=== PATIENT | female | born 1955 | race Caucasian/White ===

== ENCOUNTER 2019-10-14 10:22 | Inpatient (IN) | payer MEDICARE, OTHER ==
[2019-10-14] VITALS (15 sets, daily range): BP systolic 62–109; BP diastolic 32–62
[~2019-10-14] VITALS: Ht 198.1 cm; Wt 148.0 kg
[~2019-10-14 10:22] MED LIST: CEPH-263 PO; CITA40TA5 PO; CYAN1TAB19 PO; FERR325T72 PO; FURO40TA4 PO; Folic Acid PO; LEVO100T5 PO; LISI1TAB37 PO; LORA0.5T96 PO; NYST60PO TP; PANT40TA77 PO; TRAZ-118 PO; [UNRECOGNIZED DRUG - CODE] TOP
[2019-10-14 11:11] LABS: BASO % 0 % (0-3); EOS % 1 % (0-3); LYMPH # 0.9 x10^3/uL (1.0-4.8); LYMPH % 15 % (24-48); MEAN CORPUSCULAR HEMOGLOBIN 36 pg (25-35); MEAN CORPUSCULAR HGB CONC 34 g/dL (31-37); MEAN CORPUSCULAR VOLUME 105 fL (79-100); MONO # 0.4 x10^3/uL (0.0-1.1); MONO % 6 % (0-9); NEUT # 4.9 x10^3/uL (1.8-7.7); NEUT % 78 % (31-73); RED BLOOD COUNT 1.91 x10^6/uL (3.50-5.40); WHITE BLOOD COUNT 6.3 x10^3/uL (4.0-11.0)
[2019-10-14 11:18] LABS: HEMATOCRIT 20.1 % (36.0-47.0); HEMOGLOBIN 6.8 g/dL (12.0-15.5); PLATELET COUNT 19 x10^3/uL (140-400)
[2019-10-14 11:21] LABS: PROTHROMBIN TIME PATIENT 24.9 SEC (11.7-14.0)
[2019-10-14 11:29] LABS: CALCIUM 9.2 mg/dL (8.5-10.1); CREATININE 4.8 mg/dL (0.6-1.0); GFR 9.1; POTASSIUM 5.2 mmol/L (3.5-5.1)
[2019-10-14 11:42] LABS: ALBUMIN 2.8 g/dL (3.4-5.0); TOTAL PROTEIN 5.5 g/dL (6.4-8.2)
[2019-10-14] MEDS ORDERED: cefTRIAXone IV Push 1 GM VIAL. IVP ONE (11:45)
--- NOTE | 2019-10-14 11:51 | RAD ---
PORTABLE CHEST 1V History: Reason: hypothermia / Spl. Instructions: / History: Comparison: August 05, 2019 Findings: Diffuse interstitial thickening with mid and bibasilar alveolar opacities. Small bilateral pleural effusions, right greater than left. Unchanged heart size. No pneumothorax. Impression: 1. Interstitial and alveolar opacities, may represent pulmonary edema. 2. Small bilateral pleural effusions. Electronically signed by: Dvaid Bourgeois DO (10/14/2019 11:48 AM) [id number]
--- NOTE | 2019-10-14 12:12 | PHYS DOC ---
Past Medical History Past Medical History: A-Fib, Anemia, Anxiety, Arthritis, CHF, Constipation, Depression, Diverticulosis, GI Bleed, High Cholesterol, Hypertension, Hypothyroid, Hepatitis, Liver Disease, Renal Disease Additional Past Medical Histor: ETOH; cog communications deficit, obesity Past Surgical History: No Surgical History Smoking Status: Former Smoker Alcohol Use: Occasionally General Adult EDM: Chief Complaint: LOW TEMPERATURE HPI: HPI: Patient is a 64 year old female who was brought here from [facility] due to UTI and low temperature. Patient is morbidly obese, had liver failure due to alcohol abuse, her temperature was low today at the long term around 90 F, and she was confused. They checked her ammonia level and it was 54. They check a UA and it show evidence of infection, a Mariano catheter was placed at the long term, due to confusion and low temperature patient was transported here for evaluation. Patient is full code, she was not able to provide any history. Review of Systems: Review of Systems: Not able to obtain review of systems due to patient condition. Heart Score: Risk Factors: Risk Factors: DM, Current or recent (<one month) smoker, HTN, HLP, family history of CAD, obesity. Risk Scores: Score 0 - 3: 2.5% MACE over next 6 weeks - Discharge Home Score 4 - 6: 20.3% MACE over next 6 weeks - Admit for Clinical Observation Score 7 - 10: 72.7% MACE over next 6 weeks - Early Invasive Strategies Current Medications: Current Medications Medications (Trade) Dose Ordered Sig/Selene Start Time Stop Time Status Last Admin Dose Admin Ceftriaxone Sodium (Rocephin) 1 gm 1X ONCE 10/14/19 11:45 10/14/19 11:46 DC 10/14/19 12:07 1 GM Allergies: Allergies: Allergies Coded Allergies Type Severity Reaction Last Updated Verified hydromorphone Adverse Reaction Intermediate Doesn't like the way it makes her feel. 09/21/16 Yes Physical Exam: PE: Constitutional: Well developed, well nourished, CONFUSED AND TOXIC APPEARANCE HENT: Normocephalic, atraumatic, bilateral external ears normal, oropharynx moist, no oral exudates, nose normal. [] Eyes: PERRLA, EOMI, conjunctiva normal, no discharge. [] Neck: Normal range of motion, no tenderness, supple, no stridor. [] Cardiovascular:Heart rate regular rhythm, no murmur Lungs & Thorax: Bilateral breath sounds clear to auscultation [] Abdomen: Bowel sounds normal, soft, no tenderness, no masses, no pulsatile masses. [] Skin: COLD TO TOUCH, Back: ATRAUMATIC Extremities: BILATERAL LOWER EXTREMITIES PITTING EDEMA, 4 PLUS. Neurologic: RESPONSIVE TO VERBAL AND PAIN STIMULI BUT CONFUSED... Psychologic: NOT ABLE TO EVALUATE DUE TO CONDITION. Current Patient Data: Labs: Laboratory Tests Test 10/14/19 10:45 White Blood Count 6.3 x10^3/uL (4.0-11.0) Red Blood Count 1.91 x10^6/uL (3.50-5.40) L Hemoglobin 6.8 g/dL (12.0-15.5) *L Hematocrit 20.1 % (36.0-47.0) *L Mean Corpuscular Volume 105 fL (79-100) H Mean Corpuscular Hemoglobin 36 pg (25-35) H Mean Corpuscular Hemoglobin Concent 34 g/dL (31-37) Red Cell Distribution Width 19.0 % (11.5-14.5) H Platelet Count 19 x10^3/uL (140-400) *L Neutrophils (%) (Auto) 78 % (31-73) H Lymphocytes (%) (Auto) 15 % (24-48) L Monocytes (%) (Auto) 6 % (0-9) Eosinophils (%) (Auto) 1 % (0-3) Basophils (%) (Auto) 0 % (0-3) Neutrophils # (Auto) 4.9 x10^3/uL (1.8-7.7) Lymphocytes # (Auto) 0.9 x10^3/uL (1.0-4.8) L Monocytes # (Auto) 0.4 x10^3/uL (0.0-1.1) Eosinophils # (Auto) 0.0 x10^3/uL (0.0-0.7) Basophils # (Auto) 0.0 x10^3/uL (0.0-0.2) Prothrombin Time 24.9 SEC (11.7-14.0) H Prothrombin Time INR 2.3 (0.8-1.1) H Activated Partial Thromboplast Time 60 SEC (24-38) H Sodium Level 140 mmol/L (136-145) Potassium Level 5.2 mmol/L (3.5-5.1) H Chloride Level 107 mmol/L (98-107) Carbon Dioxide Level 21 mmol/L (21-32) Anion Gap 12 (6-14) Blood Urea Nitrogen 62 mg/dL (7-20) H Creatinine 4.8 mg/dL (0.6-1.0) H Estimated GFR (Cockcroft-Gault) 9.1 BUN/Creatinine Ratio 13 (6-20) Glucose Level 95 mg/dL (70-99) Lactic Acid Level 1.4 mmol/L (0.4-2.0) Calcium Level 9.2 mg/dL (8.5-10.1) Total Bilirubin 3.0 mg/dL (0.2-1.0) H Aspartate Amino Transferase (AST) 65 U/L (15-37) H Alanine Aminotransferase (ALT) 45 U/L (14-59) Alkaline Phosphatase 121 U/L (46-116) H Troponin I Quantitative < 0.017 ng/mL (0.000-0.055) Total Protein 5.5 g/dL (6.4-8.2) L Albumin 2.8 g/dL (3.4-5.0) L Albumin/Globulin Ratio 1.0 (1.0-1.7) Lipase 216 U/L (73-393) Laboratory Tests 10/14/19 10:45 Laboratory Tests 10/14/19 10:45 Vital Signs: Vital Signs Date Time Temp Pulse Resp B/P (MAP) Pulse Ox O2 Delivery O2 Flow Rate FiO2 10/14/19 10:22 90.1 63 16 114/51 (72) 95 Room Air 90.1 EKG: EKG: EKG was done at 1030, heart rate of 63 beats per minutes, sinus rhythm, no ST segment elevation. There is prolonged QT [] Radiology/Procedures: Radiology/Procedures: [][facility] [address] [place] [address] IMAGING REPORT Signed PATIENT: MILES SAM ACCOUNT: [id number] : 1955 LOCATION: ER AGE: 64 SEX: F EXAM STATUS: REG ER ORD. PHYSICIAN: VIRGINIA HAYDEN DO REASON: hypothermia PROCEDURE: PORTABLE CHEST 1V PORTABLE CHEST 1V History: Reason: hypothermia / Spl. Instructions: / History: Comparison: August 05, 2019 Findings: Diffuse interstitial thickening with mid and bibasilar alveolar opacities. Small bilateral pleural effusions, right greater than left. Unchanged heart size. No pneumothorax. Impression: 1. Interstitial and alveolar opacities, may represent pulmonary edema. 2. Small bilateral pleural effusions. Electronically signed by: David Bourgeois DO (10/14/2019 11:48 AM) [id number] DICTATED and SIGNED BY: DAVID BOURGEOIS DO DATE: 10/14/19 1148 Course & Med Decision Making: Course & Med Decision Making Pertinent Labs and Imaging studies reviewed. (See chart for details) Patient is a 64-year-old female who was found to be hypothermic, had UTI. Patient has an Mariano catheter that was placed this morning at the long term. Her temperature was 90 F. She was confused disoriented, she was found to be anemic, pulmonary congestion on chest x-ray, bilateral pitting edema in the lower extremity. Patient is morbidly obese. She was given 1 unit of red blood cell in ER, she was given 1 g Rocephin IV in ER for UTI. Patient has history of liver failure due to alcohol abuse. Patient will be admitted to ICU for further evaluation and treatment. Discussed with Dr. Romo, hospitalist who agreed to admit the patient Dragon Disclaimer: Cecy Disclaimer: This electronic medical record was generated, in whole or in part, using a voice recognition dictation system. Departure Departure Impression: Primary Impression: Anemia Additional Impressions: UTI (urinary tract infection) Hypothermia AMS (altered mental status) Liver failure Pulmonary edema Disposition: ADMITTED INPATIENT Admitting Physician: OZZIE (DR. ROMO) Condition: IMPROVED Referrals: KATHERINE KITCHENP-C (PCP) Justicifation of Admission Dx: Justifications for Admission: Justification of Admission Dx: Yes Altered Mental Status: Altered Mental Status VIRGINIA HAYDEN DO Oct 14, 2019 12:12
[2019-10-14] MEDS ORDERED: ONDANSETRON PF 4 MG/2 ML VIAL. IV PRN (13:00)
--- NOTE | 2019-10-14 13:59 | PDOC2 ---
GI CONSULT Reason For Consult: anemia HPI: HPI: 64 y/o female sent to ER from w/ hypothermia and UTI. Noted w/ anemia and we are asked to see for this. Unable to obtain meaningful history from her. D/w ER nurse - no reports of bleeding. We saw in 08/2019 for diarrhea and hematochezia (hemoccult negative) which resolved on admission. Was noted w/ macrocytic anemia (normal B12) requiring transfusions, thrombocytopenia, coagulopathy, and abnormal LFTs. Was still drinking. Viral hepatitis panel was negative and hemochromatosis testing was negative (for abnormal iron studies). Imaging showed fatty liver. Had UTI at that time as well. Saw cardiology and nephrology for CHF and DOT/CKD. After that, she was admitted to the [facility] in 09/2019 for many of the same issues - CHF, DOT/CKD, and anemia/thrombocytopenia w/o obvious bleeding requiring transfusions when Hgb drifted below 7. Had an EGD which showed gastritis and portal hypertension w/o bleeding. Noted w/ elevated ammonia and started on lactulose. RUQ US showed signs of cirrhosis. Fibroscan was ordered but unable to be performed due to body habitus. Discharged to w/ plans for alcohol rehab on 11/03/19. Other outside records reviewed - Hgb averages in 7-8 range. Elevated ammonia noted with note so continue lactulose and start Xifaxan (not sure if she was taking). EGD here in 2017 for hematemesis and melena showed large DU w/ visible vessel not amendable to endoscopic intervention. Underwent IR embolization. Previously reported normal colonoscopy except hemorrhoids @ [facility] 1.5 years ago - asked for records last admission but don't think we ever received. Diverticulosis noted on past imaging. S/p cholecystectomy. No pancreas history. PMH: PMH: CHF, HTN, CKD, HLD, anxiety, agoraphobia, UTI, DU, diverticulosis cholecystectomy, umbilical hernia repair x 2, complete hysterectomy FH: Family History: Other (mother - PBC) Social History: Smoke: Quit ALCOHOL: other (h/o heavy use, recently quit) Drugs: None ROS: Unobtainable. Vitals: Vitals: Vital Signs Date Time Temp Pulse Resp B/P (MAP) Pulse Ox O2 Delivery O2 Flow Rate FiO2 10/14/19 12:46 91.2 64 16 116/50 (72) 99 Nasal Cannula 2.0 91.2 Labs: Labs: Laboratory Tests Test 10/14/19 10:45 White Blood Count 6.3 x10^3/uL (4.0-11.0) Red Blood Count 1.91 x10^6/uL (3.50-5.40) Hemoglobin 6.8 g/dL (12.0-15.5) Hematocrit 20.1 % (36.0-47.0) Mean Corpuscular Volume 105 fL (79-100) Mean Corpuscular Hemoglobin 36 pg (25-35) Mean Corpuscular Hemoglobin Concent 34 g/dL (31-37) Red Cell Distribution Width 19.0 % (11.5-14.5) Platelet Count 19 x10^3/uL (140-400) Neutrophils (%) (Auto) 78 % (31-73) Lymphocytes (%) (Auto) 15 % (24-48) Monocytes (%) (Auto) 6 % (0-9) Eosinophils (%) (Auto) 1 % (0-3) Basophils (%) (Auto) 0 % (0-3) Neutrophils # (Auto) 4.9 x10^3/uL (1.8-7.7) Lymphocytes # (Auto) 0.9 x10^3/uL (1.0-4.8) Monocytes # (Auto) 0.4 x10^3/uL (0.0-1.1) Eosinophils # (Auto) 0.0 x10^3/uL (0.0-0.7) Basophils # (Auto) 0.0 x10^3/uL (0.0-0.2) Prothrombin Time 24.9 SEC (11.7-14.0) Prothromb Time International Ratio 2.3 (0.8-1.1) Activated Partial Thromboplast Time 60 SEC (24-38) Sodium Level 140 mmol/L (136-145) Potassium Level 5.2 mmol/L (3.5-5.1) Chloride Level 107 mmol/L (98-107) Carbon Dioxide Level 21 mmol/L (21-32) Anion Gap 12 (6-14) Blood Urea Nitrogen 62 mg/dL (7-20) Creatinine 4.8 mg/dL (0.6-1.0) Estimated GFR (Cockcroft-Gault) 9.1 BUN/Creatinine Ratio 13 (6-20) Glucose Level 95 mg/dL (70-99) Lactic Acid Level 1.4 mmol/L (0.4-2.0) Calcium Level 9.2 mg/dL (8.5-10.1) Total Bilirubin 3.0 mg/dL (0.2-1.0) Aspartate Amino Transf (AST/SGOT) 65 U/L (15-37) Alanine Aminotransferase (ALT/SGPT) 45 U/L (14-59) Alkaline Phosphatase 121 U/L (46-116) Troponin I Quantitative < 0.017 ng/mL (0.000-0.055) Total Protein 5.5 g/dL (6.4-8.2) Albumin 2.8 g/dL (3.4-5.0) Albumin/Globulin Ratio 1.0 (1.0-1.7) Lipase 216 U/L (73-393) Allergies: Coded Allergies: hydromorphone (Verified Adverse Reaction, Intermediate, Doesn't like the way it makes her feel., 09/21/16) Medications: Current Medications Medications (Trade) Dose Ordered Sig/Selene Route PRN Reason Start Time Stop Time Status Last Admin Dose Admin Ceftriaxone Sodium (Rocephin) 1 gm 1X ONCE IVP 10/14/19 11:45 10/14/19 11:46 DC 10/14/19 12:07 Imaging: Imaging: CXR 10/14/19 Impression: 1. Interstitial and alveolar opacities, may represent pulmonary edema. 2. Small bilateral pleural effusions. PE: GEN: ill HEENT: Atraumatic, PERRL LUNGS: CTAB HEART: RRR ABD: BS+, soft, obese - soft, non-tender EXTREMITY: BLE pitting edema SKIN: No rashes, no jaundice NEURO/PSYCH: opens eyes, does not follow commands A/P: A/P: AMS, hypothermia, UTI Chronic macrocytic anemia, thrombocytopenia (worse), coagulopathy, elevated LFTs, mild hyperammonemia Alcoholic liver disease - EGD 09/2019 @ [facility] w/ portal hypertension, past imaging w/ fatty liver/?cirrhosis H/o DU requiring IR embolization (2016) CRC screen - UTD Diverticulosis, hemorrhoids S/p cholecystectomy CHF, CKD/DOT, r/o COVID-19 -- D/w Dr. Rivera. Agree w/ transfusion. Check urine culture, fibrinogen, D-dimer. Check abd US. IV acid-farmworker field crop. BLAKE HOPKINS Oct 14, 2019 13:59
[2019-10-14] MEDS ORDERED: VITAMIN B IM (15:22)
[2019-10-14] MEDS ORDERED: ALBU2.5V5 NEB (15:22)
[2019-10-14] MEDS ORDERED: SPIR50TA PO (15:22)
[2019-10-14] MEDS ORDERED: SIMV20TA18 PO (15:22)
[2019-10-14] MEDS ORDERED: VITAMIN B PO (15:22)
[2019-10-14] MEDS ORDERED: RIFA550T4 PO (15:22)
[2019-10-14] MEDS ORDERED: PANT40TA77 PO (15:22)
[2019-10-14] MEDS ORDERED: FURO20TA3 PO (15:22)
[2019-10-14] MEDS ORDERED: CARV3.1210 PO (15:22)
[2019-10-14] MEDS ORDERED: ACET325T9 PO (15:22)
[2019-10-14] MEDS ORDERED: DICL100G54 TP (15:22)
[2019-10-14] MEDS ORDERED: LACT20SO PO (15:22)
[2019-10-14 16:10] LABS: D-DIMER 1.33 ug/mlFEU (0.00-0.50)
[2019-10-14] MEDS: PANTOPRAZOLE IV PUSH 40 MG VIAL. IVP SCH (17:52)
[2019-10-14] MEDS ORDERED: IV NORMAL SALINE 1000ML BAG 1,000 ML IV ONE (18:45)
[2019-10-14] MEDS ORDERED: IV NORMAL SALINE 500ML BAG 500 ML IV ONE (19:45)
--- NOTE | 2019-10-14 19:47 | RAD ---
INDICATION: Abdominal swelling with concern for free fluid COMPARISON: CT from August 05, 2019 FINDINGS: Focused ultrasound images obtained of the abdomen. Visualization is somewhat limited secondary to overlying soft tissue structures obscuring. Edema of the soft tissues is seen within the left side of the abdomen. IMPRESSION: * Limited evaluation secondary to overlying soft tissue structures obscuring. There is edema seen within the soft tissues. There is a relatively hypoechoic region seen at the left upper quadrant but difficult to tell if this is secondary to edema within the area or fluid. Electronically signed by: Dwayne Wilkerson MD (10/14/2019 7:44 PM) [id number]
--- NOTE | 2019-10-14 20:43 | PDOC1 ---
History and Physical Date of Admission Date of Admission DATE: 10/14/19 TIME: 20:00 Identification/Chief Complaint Chief Complaint ams, hypothermia Source Source: Chart review, Unable to obtain due to (ams) History of Present Illness History of Present Illness Ms Perez is a 64yo F w/ PMHx ETOH abuse, liver failure, HLD, HTN, Morbid obesity, OA, hypothyroidism, PUD s/p EGD in 2017 with large DU w/ visible vessel - not amendable to endoscopic intervention and underwent IR embolization) who p resented to ED on 10/14/19 with AMS and hypothermia. no meaningful hx taken given AMS. her temperature was low today at the shelter around 90 F They checked her ammonia level and it was 54. They checked a UA and it show evidence of infection, a Mariano catheter was placed at the shelter, due to confusion. LABS IN ED SHOW Hb of 6.7 but baseline 8, creatine 4.8 but baseline 2.5-3. plt count 19k, baseline around 20k patient sent directly to the ICU for further monitoring. patient is a DNR and DNI, confirmed upon admission. Past Medical History Cardiovascular: HTN, Hyperlipidemia Pulmonary: No pertinent hx CENTRAL NERVOUS SYSTEM: Periperal neuropathy, Other GI: Diverticulosis, GERD, GI bleed, Hemorrhoids, Peptic Ulcer disease, Other Heme/Onc: Anemia NOS Hepatobiliary: No pertinent hx Psych: Anxiety, Other Musculoskeletal: Osteoarthritis Rheumatologic: No pertinent hx Infectious disease: No pertinent hx Renal/: Chronic renal insuff Endocrine: Hypothyroidism Past Surgical History Past Surgical History: Cholecystectomy, Hernia Repair, Hysterectomy, Other Family History Family History: Heart Disease Social History Smoke: Quit ALCOHOL: other (h/o heavy use, recently quit) Drugs: None Current Problem List Problem List Problems Medical Problems: (1) AMS (altered mental status) Status: Acute (2) Anemia Status: Acute (3) Hypothermia Status: Acute (4) Liver failure Status: Acute (5) Pulmonary edema Status: Acute (6) UTI (urinary tract infection) Status: Acute Current Medications Current Medications Current Medications Ceftriaxone Sodium (Rocephin) 1 gm 1X ONCE IVP Last administered on 10/14/19at 12:07; Start 10/14/19 at 11:45; Stop 10/14/19 at 11:46; Status DC Ondansetron HCl (Zofran) 4 mg PRN Q8HRS PRN IV NAUSEA/VOMITING; Start 10/14/19 at 13:00; Stop 10/15/19 at 12:59 Pantoprazole Sodium (PROTONIX VIAL for IV PUSH) 40 mg DAILYAC IVP Last admi nistered on 10/14/19at 17:52; Start 10/14/19 at 16:30 Ceftriaxone Sodium (Rocephin) 1 gm Q24H IVP ; Start 10/15/19 at 12:00 Sodium Chloride 1,000 ml @ 500 mls/hr 1X ONCE IV Last administered on 10/14/19at 19:25; Start 10/14/19 at 18:45; Stop 10/14/19 at 20:44 Sodium Chloride 500 ml @ 500 mls/hr 1X ONCE IV ; Start 10/14/19 at 19:45; Stop 10/14/19 at 20:44 Active Scripts Active Levothyroxine Sodium 100 Mcg Tablet 100 Mcg PO DAILY06 90 Days Trazodone Hcl 50 Mg Tablet 50 Mg PO QHS [Folic Acid] 1 MG Tablet 1 Mg PO DAILY Nystop (Nystatin) 60 Gm Powder 1 Jony TP BID 7 Days Reported Voltaren (Diclofenac Sodium) 100 Gm Gel..gram. 2 Gm TP BID 30 Days apply to affected area(s) Tylenol (Acetaminophen) 325 Mg Tablet 1 Tab PO PRN DAILY PRN Protonix (Pantoprazole Sodium) 40 Mg Tablet.dr 40 Mg PO DAILYAC [vitamin b1 tablet] 1 Tab PO DAILY Simvastatin 20 Mg Tablet 1 Tab PO QHS Albuterol Sulfate Neb Soln (Albuterol Sulfate) 2.5 Mg/3 Ml Vial.neb 1 Vial NEB PRN Q6HRS PRN Furosemide 20 Mg Tablet 1 Tab PO DAILY Carvedilol (Carvedilol) 3.125 Mg Tablet 3.125 Mg PO BIDWMEALS Aldactone (Spironolactone) 50 Mg Tablet 1 Tab PO DAILY Lactulose 20 Gm/30 Ml Solution 20 Gm PO TID Xifaxan (Rifaximin) 550 Mg Tablet 1 Tab PO BID 10 Days [Vitamin B12 Injectio] 1,000 Mcg IM QTU 21 Days Citalopram Hbr (Citalopram Hydrobromide) 40 Mg Tablet 10 Mg PO DAILY Allergies Allergies: Coded Allergies: hydromorphone (Verified Adverse Reaction, Intermediate, Doesn't like the way it makes her feel., 6/22/17) ROS Review of System CONSTITUTIONAL: No fever or chills EYES: No recent changes SKIN: No rash or itching CARDIOVASCULAR: No chest pain, syncope, palpitations, or edema RESPIRATORY: No SOB or cough GASTROINTESTINAL: No nausea, vomiting or abdominal pain NEUROLOGICAL: No headaches or weakness ENDOCRINE: No cold or heat intolerance GENITOURINARY: No urgency or frequency of urination MUSCULOSKELETAL: No back pain or joint pain LYMPHATICS: No enlarged lymph nodes PSYCHIATRIC: No anxiety or depression Physical Exam Physical Exam GENERAL: confused HEENT: Head normocephalic, atraumatic. NECK: Supple LUNGS: Clear to auscultation. HEART: RRR, S1, S2 present, pulses intact ABDOMEN: Soft, positive bowel sounds. EXTREMITIES: No cyanosis or edema. NEUROLOGIC: Normal speech, normal tone PSYCHIATRIC: Normal affect, normal mood. SKIN: No ulceration. Vitals Vitals Vital Signs Date Time Temp Pulse Resp B/P (MAP) Pulse Ox O2 Delivery O2 Flow Rate FiO2 10/14/19 19:53 Nasal Cannula 3.0 10/14/19 18:45 97.3 70 20 69/36 97.3 10/14/19 18:00 92 Labs Labs Laboratory Tests Test 10/14/19 10:45 White Blood Count 6.3 x10^3/uL (4.0-11.0) Red Blood Count 1.91 x10^6/uL (3.50-5.40) Hemoglobin 6.8 g/dL (12.0-15.5) Hematocrit 20.1 % (36.0-47.0) Mean Corpuscular Volume 105 fL (79-100) Mean Corpuscular Hemoglobin 36 pg (25-35) Mean Corpuscular Hemoglobin Concent 34 g/dL (31-37) Red Cell Distribution Width 19.0 % (11.5-14.5) Platelet Count 19 x10^3/uL (140-400) Neutrophils (%) (Auto) 78 % (31-73) Lymphocytes (%) (Auto) 15 % (24-48) Monocytes (%) (Auto) 6 % (0-9) Eosinophils (%) (Auto) 1 % (0-3) Basophils (%) (Auto) 0 % (0-3) Neutrophils # (Auto) 4.9 x10^3/uL (1.8-7.7) Lymphocytes # (Auto) 0.9 x10^3/uL (1.0-4.8) Monocytes # (Auto) 0.4 x10^3/uL (0.0-1.1) Eosinophils # (Auto) 0.0 x10^3/uL (0.0-0.7) Basophils # (Auto) 0.0 x10^3/uL (0.0-0.2) Prothrombin Time 24.9 SEC (11.7-14.0) Prothromb Time International Ratio 2.3 (0.8-1.1) Activated Partial Thromboplast Time 60 SEC (24-38) Fibrinogen 134 mg/dL (200-440) D-Dimer (Yesenia) 1.33 ug/mlFEU (0.00-0.50) Sodium Level 140 mmol/L (136-145) Potassium Level 5.2 mmol/L (3.5-5.1) Chloride Level 107 mmol/L (98-107) Carbon Dioxide Level 21 mmol/L (21-32) Anion Gap 12 (6-14) Blood Urea Nitrogen 62 mg/dL (7-20) Creatinine 4.8 mg/dL (0.6-1.0) Estimated GFR (Cockcroft-Gault) 9.1 BUN/Creatinine Ratio 13 (6-20) Glucose Level 95 mg/dL (70-99) Lactic Acid Level 1.4 mmol/L (0.4-2.0) Calcium Level 9.2 mg/dL (8.5-10.1) Total Bilirubin 3.0 mg/dL (0.2-1.0) Aspartate Amino Transf (AST/SGOT) 65 U/L (15-37) Alanine Aminotransferase (ALT/SGPT) 45 U/L (14-59) Alkaline Phosphatase 121 U/L (46-116) Troponin I Quantitative < 0.017 ng/mL (0.000-0.055) Total Protein 5.5 g/dL (6.4-8.2) Albumin 2.8 g/dL (3.4-5.0) Albumin/Globulin Ratio 1.0 (1.0-1.7) Lipase 216 U/L (73-393) Laboratory Tests Test 10/14/19 10:45 White Blood Count 6.3 x10^3/uL (4.0-11.0) Red Blood Count 1.91 x10^6/uL (3.50-5.40) Hemoglobin 6.8 g/dL (12.0-15.5) Hematocrit 20.1 % (36.0-47.0) Mean Corpuscular Volume 105 fL (79-100) Mean Corpuscular Hemoglobin 36 pg (25-35) Mean Corpuscular Hemoglobin Concent 34 g/dL (31-37) Red Cell Distribution Width 19.0 % (11.5-14.5) Platelet Count 19 x10^3/uL (140-400) Neutrophils (%) (Auto) 78 % (31-73) Lymphocytes (%) (Auto) 15 % (24-48) Monocytes (%) (Auto) 6 % (0-9) Eosinophils (%) (Auto) 1 % (0-3) Basophils (%) (Auto) 0 % (0-3) Neutrophils # (Auto) 4.9 x10^3/uL (1.8-7.7) Lymphocytes # (Auto) 0.9 x10^3/uL (1.0-4.8) Monocytes # (Auto) 0.4 x10^3/uL (0.0-1.1) Eosinophils # (Auto) 0.0 x10^3/uL (0.0-0.7) Basophils # (Auto) 0.0 x10^3/uL (0.0-0.2) Prothrombin Time 24.9 SEC (11.7-14.0) Prothromb Time International Ratio 2.3 (0.8-1.1) Activated Partial Thromboplast Time 60 SEC (24-38) Fibrinogen 134 mg/dL (200-440) D-Dimer (Yesenia) 1.33 ug/mlFEU (0.00-0.50) Sodium Level 140 mmol/L (136-145) Potassium Level 5.2 mmol/L (3.5-5.1) Chloride Level 107 mmol/L (98-107) Carbon Dioxide Level 21 mmol/L (21-32) Anion Gap 12 (6-14) Blood Urea Nitrogen 62 mg/dL (7-20) Creatinine 4.8 mg/dL (0.6-1.0) Estimated GFR (Cockcroft-Gault) 9.1 BUN/Creatinine Ratio 13 (6-20) Glucose Level 95 mg/dL (70-99) Lactic Acid Level 1.4 mmol/L (0.4-2.0) Calcium Level 9.2 mg/dL (8.5-10.1) Total Bilirubin 3.0 mg/dL (0.2-1.0) Aspartate Amino Transf (AST/SGOT) 65 U/L (15-37) Alanine Aminotransferase (ALT/SGPT) 45 U/L (14-59) Alkaline Phosphatase 121 U/L (46-116) Troponin I Quantitative < 0.017 ng/mL (0.000-0.055) Total Protein 5.5 g/dL (6.4-8.2) Albumin 2.8 g/dL (3.4-5.0) Albumin/Globulin Ratio 1.0 (1.0-1.7) Lipase 216 U/L (73-393) VTE Prophylaxis Ordered VTE Prophylaxis Devices: Yes VTE Pharmacological Prophylaxi: Yes Assessment/Plan Assessment/Plan A/P Acute Septic Encephalopathy secondary to UTI. continue abx Hypotension likely due to volume depletion, continue IVF, check lactate level which is normal. albumin 2.8. will given IV albumin. Hypothermia Chronic Anemia, thyrombocytopenia Anemia: suspect due to Etoh SPEP and HFE gene testing neg coagulapathy with elevated INR secondary to etoh abuse Elevated Amonia Alcoholic liver disease - EGD 09/2019 @ [facility] w/ portal hypertension, past imaging w/ fatty liver/?cirrhosis. check abdominal US Acute on Chronic Renal Failure secondary to vasomotor nephropapthy seen by Nephro last admission, admission creatine 4.8, baseline 2.5-3 H/o DU requiring IR embolization (2016) - IV PPI therapy Debility, weakness consult PT and OT EtOH abuse disorder, very morbid obesity, BMI 55 Severe protein calorie malnutrition Hx of CHF but preserved Ef last echo 08/07/19 dvt ppx: defered given low plt and elevated INR GI and nephro consult DNR and DNI Justicifation of Admission Dx: Justifications for Admission: Justification of Admission Dx: Yes Altered Mental Status: Altered Mental Status TJ JAIMES MD Oct 14, 2019 20:43
[2019-10-14] MEDS: ALBUMIN HUMAN 25% 100 ML IV SCH (21:07)
[2019-10-14] MEDS: NOREPINEPHRINE VIAL 8 MG in IV DEXTROSE 5% 250 ML IV PRN (22:08)
[2019-10-15] VITALS (26 sets, daily range): BP systolic 77–150; BP diastolic 35–65
[2019-10-15] MEDS: IV NORMAL SALINE 1000ML BAG 1,000 ML IV SCH ×2 (01:00→18:06)
--- NOTE | 2019-10-15 02:24 | NUR ---
Nursing Note: Pt with about 10cc of urine this whole shift. Notified Dr. Francis about this earlier in the shift. Started fluids/albumin and levophed to help with BP. Urine that is produced in bloody, catheter flushed. Bladder scanned patient as well with 0cc as result.
[2019-10-15 05:47] LABS: HEMATOCRIT 22.3 % (36.0-47.0); HEMOGLOBIN 7.6 g/dL (12.0-15.5); RED BLOOD COUNT 2.16 x10^6/uL (3.50-5.40)
[2019-10-15 06:10] LABS: ALBUMIN 2.9 g/dL (3.4-5.0); ALBUMIN/GLOBULIN RATIO 1.2 (1.0-1.7); CALCIUM 8.6 mg/dL (8.5-10.1); CREATININE 5.2 mg/dL (0.6-1.0); GFR 8.3; TOTAL BILIRUBIN 4.5 mg/dL (0.2-1.0); TOTAL PROTEIN 5.3 g/dL (6.4-8.2)
[2019-10-15 06:14] LABS: POTASSIUM 5.8 mmol/L (3.5-5.1)
[2019-10-15 07:19] LABS: PROTHROMBIN TIME PATIENT 23.6 SEC (11.7-14.0)
[2019-10-15 09:20] LABS: WHITE BLOOD COUNT 10.1 x10^3/uL (4.0-11.0)
[2019-10-15] MEDS: PANTOPRAZOLE IV PUSH 40 MG VIAL. IVP SCH (09:31)
[2019-10-15] MEDS: ALBUMIN HUMAN 25% 100 ML IV SCH ×2 (09:31→21:21)
[2019-10-15] MEDS: NOREPINEPHRINE VIAL 8 MG in IV DEXTROSE 5% 250 ML IV PRN ×2 (09:33→21:21)
--- NOTE | 2019-10-15 10:14 | EKG ---
[address] [place] [address] Test Date: 2019-10-14 Test Time: 10:30:01 Pat Name: MILES SAM Department: Room: Gender: F Cro: : 1955 Requested By: VIRGINIA HAYDEN Order Number: [id number] Reading MD: Measurements Intervals [place] Rate: 63 P: 90 WA: 198 QRS: 54 QRSD: 100 T: -42 QT: 480 QTc: 495 Interpretive Statements SINUS RHYTHM LOW LIMB LEAD VOLTAGE PROLONGED QT NO SPECIFIC ECG ABNORMALITIES RI6.01 No previous ECG available for comparison
--- NOTE | 2019-10-15 11:15 | PDOC ---
G I PROGRESS NOTE Subjective Per staff, not responsive, though moans and makes some purposeful movements with head. Physical Exam No real purposeful response. PE postponed due to PUI and to conserve PPE. Review of Relevant I have reviewed the following items catarina (where applicable) has been applied. Labs Laboratory Tests Test 10/14/19 10:45 10/15/19 05:30 White Blood Count 6.3 x10^3/uL (4.0-11.0) 10.1 x10^3/uL (4.0-11.0) Red Blood Count 1.91 x10^6/uL (3.50-5.40) 2.16 x10^6/uL (3.50-5.40) Hemoglobin 6.8 g/dL (12.0-15.5) 7.6 g/dL (12.0-15.5) Hematocrit 20.1 % (36.0-47.0) 22.3 % (36.0-47.0) Mean Corpuscular Volume 105 fL (79-100) 103 fL (79-100) Mean Corpuscular Hemoglobin 36 pg (25-35) 35 pg (25-35) Mean Corpuscular Hemoglobin Concent 34 g/dL (31-37) 34 g/dL (31-37) Red Cell Distribution Width 19.0 % (11.5-14.5) 20.0 % (11.5-14.5) Platelet Count 19 x10^3/uL (140-400) 25 x10^3/uL (140-400) Neutrophils (%) (Auto) 78 % (31-73) Lymphocytes (%) (Auto) 15 % (24-48) Monocytes (%) (Auto) 6 % (0-9) Eosinophils (%) (Auto) 1 % (0-3) Basophils (%) (Auto) 0 % (0-3) Neutrophils # (Auto) 4.9 x10^3/uL (1.8-7.7) Lymphocytes # (Auto) 0.9 x10^3/uL (1.0-4.8) Monocytes # (Auto) 0.4 x10^3/uL (0.0-1.1) Eosinophils # (Auto) 0.0 x10^3/uL (0.0-0.7) Basophils # (Auto) 0.0 x10^3/uL (0.0-0.2) Prothrombin Time 24.9 SEC (11.7-14.0) 23.6 SEC (11.7-14.0) Prothromb Time International Ratio 2.3 (0.8-1.1) 2.1 (0.8-1.1) Activated Partial Thromboplast Time 60 SEC (24-38) Fibrinogen 134 mg/dL (200-440) D-Dimer (Yesenia) 1.33 ug/mlFEU (0.00-0.50) Sodium Level 140 mmol/L (136-145) 141 mmol/L (136-145) Potassium Level 5.2 mmol/L (3.5-5.1) 5.8 mmol/L (3.5-5.1) Chloride Level 107 mmol/L (98-107) 108 mmol/L (98-107) Carbon Dioxide Level 21 mmol/L (21-32) 23 mmol/L (21-32) Anion Gap 12 (6-14) 10 (6-14) Blood Urea Nitrogen 62 mg/dL (7-20) 64 mg/dL (7-20) Creatinine 4.8 mg/dL (0.6-1.0) 5.2 mg/dL (0.6-1.0) Estimated GFR (Cockcroft-Gault) 9.1 8.3 BUN/Creatinine Ratio 13 (6-20) 12 (6-20) Glucose Level 95 mg/dL (70-99) 91 mg/dL (70-99) Lactic Acid Level 1.4 mmol/L (0.4-2.0) Calcium Level 9.2 mg/dL (8.5-10.1) 8.6 mg/dL (8.5-10.1) Total Bilirubin 3.0 mg/dL (0.2-1.0) 4.5 mg/dL (0.2-1.0) Aspartate Amino Transf (AST/SGOT) 65 U/L (15-37) 57 U/L (15-37) Alanine Aminotransferase (ALT/SGPT) 45 U/L (14-59) 50 U/L (14-59) Alkaline Phosphatase 121 U/L (46-116) 120 U/L (46-116) Troponin I Quantitative < 0.017 ng/mL (0.000-0.055) Total Protein 5.5 g/dL (6.4-8.2) 5.3 g/dL (6.4-8.2) Albumin 2.8 g/dL (3.4-5.0) 2.9 g/dL (3.4-5.0) Albumin/Globulin Ratio 1.0 (1.0-1.7) 1.2 (1.0-1.7) Lipase 216 U/L (73-393) Laboratory Tests Test 10/15/19 05:30 White Blood Count 10.1 x10^3/uL (4.0-11.0) Red Blood Count 2.16 x10^6/uL (3.50-5.40) Hemoglobin 7.6 g/dL (12.0-15.5) Hematocrit 22.3 % (36.0-47.0) Mean Corpuscular Volume 103 fL (79-100) Mean Corpuscular Hemoglobin 35 pg (25-35) Mean Corpuscular Hemoglobin Concent 34 g/dL (31-37) Red Cell Distribution Width 20.0 % (11.5-14.5) Platelet Count 25 x10^3/uL (140-400) Prothrombin Time 23.6 SEC (11.7-14.0) Prothromb Time International Ratio 2.1 (0.8-1.1) Sodium Level 141 mmol/L (136-145) Potassium Level 5.8 mmol/L (3.5-5.1) Chloride Level 108 mmol/L (98-107) Carbon Dioxide Level 23 mmol/L (21-32) Anion Gap 10 (6-14) Blood Urea Nitrogen 64 mg/dL (7-20) Creatinine 5.2 mg/dL (0.6-1.0) Estimated GFR (Cockcroft-Gault) 8.3 BUN/Creatinine Ratio 12 (6-20) Glucose Level 91 mg/dL (70-99) Calcium Level 8.6 mg/dL (8.5-10.1) Total Bilirubin 4.5 mg/dL (0.2-1.0) Aspartate Amino Transf (AST/SGOT) 57 U/L (15-37) Alanine Aminotransferase (ALT/SGPT) 50 U/L (14-59) Alkaline Phosphatase 120 U/L (46-116) Total Protein 5.3 g/dL (6.4-8.2) Albumin 2.9 g/dL (3.4-5.0) Albumin/Globulin Ratio 1.2 (1.0-1.7) Microbiology 10/14/19 Blood Culture - Preliminary, Resulted NO GROWTH AFTER 1 DAY Platelets better. Maybe low-grade DIC. Vitals/I & O Vital Sign - Last 24 Hours 10/14/19 10/14/19 10/14/19 10/14/19 11:16 11:46 12:12 12:13 Pulse 60 58 Resp 16 20 16 B/P (MAP) 103/49 (67) 91/59 (70) Pulse Ox 95 93 90 94 O2 Delivery Room Air Room Air Nasal Cannula O2 Flow Rate 2.0 10/14/19 10/14/19 10/14/19 10/14/19 12:16 12:46 13:16 13:46 Temp 91.2 91.2 Pulse 62 64 56 64 Resp 16 16 16 16 B/P (MAP) 100/51 (67) 116/50 (72) 95/48 (64) 102/54 (70) Pulse Ox 100 99 98 97 O2 Delivery Nasal Cannula Nasal Cannula Nasal Cannula O2 Flow Rate 2.0 2.0 2.0 10/14/19 10/14/19 10/14/19 10/14/19 14:00 14:00 15:00 15:40 Temp 92.0 93.2 92.0 93.2 Pulse 61 62 87 Resp 18 18 24 B/P (MAP) 102/53 (69) 84/44 (57) 81/62 Pulse Ox 96 95 O2 Delivery Nasal Cannula Nasal Cannula Nasal Cannula O2 Flow Rate 2.0 2.0 2.0 10/14/19 10/14/19 10/14/19 10/14/19 15:50 16:00 16:00 17:00 Temp 93.2 94.1 93.2 94.1 Pulse 83 64 70 Resp 24 18 18 B/P (MAP) 104/40 83/57 (66) 98/55 Pulse Ox 94 O2 Delivery Nasal Cannula Nasal Cannula O2 Flow Rate 2.0 2.0 10/14/19 10/14/19 10/14/19 10/14/19 17:00 18:00 18:00 18:45 Temp 94.1 95.3 97.3 94.1 95.3 97.3 Pulse 72 70 70 70 Resp 16 18 19 20 B/P (MAP) 98/55 (69) 84/47 (59) 85/47 69/36 Pulse Ox 96 92 O2 Delivery Nasal Cannula Nasal Cannula O2 Flow Rate 2.0 2.0 10/14/19 10/14/19 10/14/19 10/14/19 19:00 19:30 19:53 20:00 Temp 98.3 98.3 Pulse 90 72 72 Resp 18 18 18 B/P (MAP) 74/50 (58) 71/36 (48) 62/32 (42) Pulse Ox 90 92 93 O2 Delivery Nasal Cannula Nasal Cannula Nasal Cannula Nasal Cannula O2 Flow Rate 2.0 3.0 3.0 3.0 10/14/19 10/14/19 10/14/19 10/14/19 20:30 21:00 22:00 23:00 Pulse 72 78 76 84 Resp 18 18 18 18 B/P (MAP) 74/36 (49) 85/37 (53) 91/42 (58) 109/40 (63) Pulse Ox 92 92 92 92 O2 Delivery Nasal Cannula Nasal Cannula Nasal Cannula Nasal Cannula O2 Flow Rate 3.0 3.0 3.0 3.0 10/14/19 10/15/19 10/15/19 10/15/19 23:49 00:00 01:00 02:00 Temp 97.8 97.8 Pulse 82 82 82 Resp 18 18 18 B/P (MAP) 83/47 (59) 80/46 (57) 86/43 (57) Pulse Ox 96 96 98 O2 Delivery Nasal Cannula Nasal Cannula Nasal Cannula Nasal Cannula O2 Flow Rate 3.0 3.0 3.0 3.0 10/15/19 10/15/19 10/15/19 10/15/19 03:00 04:00 04:10 05:00 Temp 97.9 97.9 Pulse 79 79 79 Resp 14 14 14 B/P (MAP) 93/46 (62) 96/37 (56) 101/35 (57) Pulse Ox 97 98 96 O2 Delivery Nasal Cannula Nasal Cannula Nasal Cannula Nasal Cannula O2 Flow Rate 3.0 3.0 3.0 3.0 10/15/19 10/15/19 10/15/19 10/15/19 06:00 07:00 08:00 08:00 Temp 97.7 97.7 Pulse 80 80 74 Resp 14 16 18 B/P (MAP) 100/41 (60) 96/43 (60) 84/40 (55) Pulse Ox 98 99 98 O2 Delivery Nasal Cannula Nasal Cannula Nasal Cannula Nasal Cannula O2 Flow Rate 3.0 3.0 3.0 3.0 10/15/19 10/15/19 10/15/19 10/15/19 09:00 09:15 09:45 10:00 Pulse 66 74 80 77 Resp 18 16 B/P (MAP) 84/41 (55) 77/41 (53) 91/51 (64) 126/52 (76) Pulse Ox 97 96 O2 Delivery Nasal Cannula Nasal Cannula O2 Flow Rate 3.0 3.0 10/15/19 11:00 Pulse 79 Resp 20 B/P (MAP) 107/43 (64) Pulse Ox 98 O2 Delivery Nasal Cannula O2 Flow Rate 3.0 Intake and Output 10/14/19 10/14/19 10/15/19 15:00 23:00 07:00 Intake Total 2000 ml 620 ml Output Total 10 ml 5 ml Balance 1990 ml 615 ml Images Couldn't visualize peritoneum well on sono due to body habitus; doesn't seem like a lot of ascites. Problem List Problems Medical Problems: (1) AMS (altered mental status) Status: Acute (2) Anemia Status: Acute (3) Hypothermia Status: Acute (4) Liver failure Status: Acute (5) Pulmonary edema Status: Acute (6) UTI (urinary tract infection) Status: Acute Assessment AMS, from UTI? UTI? Seems likely; cultures pending. CLD, maybe cirrhotic. Plan of Care: Continue current Tx, Mgmt Plan of Care Note Note to have HD catheter placed. Justicifation of Admission Dx: Justifications for Admission: Justification of Admission Dx: Yes Altered Mental Status: Altered Mental Status HEIDI GREENE MD Oct 15, 2019 11:15
--- NOTE | 2019-10-15 11:26 | PDOC2 ---
CONSULT Date of Consult Date of Consult DATE: 10/15/19 TIME: 11:12 Reason for Consult Reason for Consult: DOT Source Source: Chart review History of Present Illness Reason for Visit: Hx Obtained from chart review 05/04 AMS Pt is a 64yo F w/ PMHx ETOH abuse, liver failure, HTN, Morbid obesity PUD s/p EGD in 2017 with large DU w/ visible vessel - not amendable to endoscopic intervention and underwent IR embolization) who presented to ED on 10/14/19 with AMS and hypothermia. [facility] around 90 F , ammonia level was 54. UA at [facility] c/w UTI . Mariano catheter was placed at the prison 05/04 to confusion and Pt sent to [facility] from [facility] In ED Hb of 6.7 <-- 8, Cr 4.8 plt count 19k, Patient is a DNR and DNI, , family would like to go ahead with Dialysis if indicated and is Temporary .Pt was hypotensive since presentation. No response to IVF Last night BP in 60's started on Pressors. She has been Anuric . Currently On o2 by [place] Past Medical History Cardiovascular: HTN, Hyperlipidemia Pulmonary: No pertinent hx CENTRAL NERVOUS SYSTEM: Periperal neuropathy, Other GI: Diverticulosis, GERD, GI bleed, Hemorrhoids, Peptic Ulcer disease, Other Heme/Onc: Anemia NOS Hepatobiliary: No pertinent hx Psych: Anxiety, Other Musculoskeletal: Osteoarthritis Rheumatologic: No pertinent hx Infectious disease: No pertinent hx Renal/: Chronic renal insuff Endocrine: Hypothyroidism Past Surgical History Past Surgical History: Cholecystectomy, Hernia Repair, Hysterectomy, Other Family History Family History: Heart Disease Social History Quit ALCOHOL: other (h/o heavy use, recently quit) Drugs: None Lives: with Family Current Problem List Problem List Problems Medical Problems: (1) AMS (altered mental status) Status: Acute (2) Anemia Status: Acute (3) Hypothermia Status: Acute (4) Liver failure Status: Acute (5) Pulmonary edema Status: Acute (6) UTI (urinary tract infection) Status: Acute Current Medications Current Medications Current Medications Ceftriaxone Sodium (Rocephin) 1 gm 1X ONCE IVP Last administered on 10/14/19at 12:07; Start 10/14/19 at 11:45; Stop 10/14/19 at 11:46; Status DC Ondansetron HCl (Zofran) 4 mg PRN Q8HRS PRN IV NAUSEA/VOMITING; Start 10/14/19 at 13:00; Stop 10/15/19 at 12:59 Pantoprazole Sodium (PROTONIX VIAL for IV PUSH) 40 mg DAILYAC IVP Last administered on 10/15/19at 09:31; Start 10/14/19 at 16:30 Ceftriaxone Sodium (Rocephin) 1 gm Q24H IVP ; Start 10/15/19 at 12:00 Sodium Chloride 1,000 ml @ 500 mls/hr 1X ONCE IV Last administered on 10/14/19at 19:25; Start 10/14/19 at 18:45; Stop 10/14/19 at 20:44; Status DC Sodium Chloride 500 ml @ 500 mls/hr 1X ONCE IV Last administered on 10/14/19at 19:45; Start 10/14/19 at 19:45; Stop 10/14/19 at 20:44; Status DC Albumin Human 100 ml @ 100 mls/hr BID IV Last administered on 10/15/19at 09:31; Start 10/14/19 at 21:00 Norepinephrine Bitartrate 8 mg/ Dextrose 258 ml @ 28.27 mls/ hr CONT PRN IV PER PROTOCOL Last administered on 10/15/19at 09:33; Start 10/14/19 at 21:45 Nystatin (Nystop) 1 jony BID TP ; Start 10/15/19 at 09:00 Sodium Chloride 1,000 ml @ 75 mls/hr [id number] IV Last administered on 10/15/19at 01:00; Start 10/15/19 at 01:00 Active Scripts Active Levothyroxine Sodium 100 Mcg Tablet 100 Mcg PO DAILY06 90 Days Trazodone Hcl 50 Mg Tablet 50 Mg PO QHS [Folic Acid] 1 MG Tablet 1 Mg PO DAILY Nystop (Nystatin) 60 Gm Powder 1 Jony TP BID 7 Days Reported Voltaren (Diclofenac Sodium) 100 Gm Gel..gram. 2 Gm TP BID 30 Days apply to affected area(s) Tylenol (Acetaminophen) 325 Mg Tablet 1 Tab PO PRN DAILY PRN Protonix (Pantoprazole Sodium) 40 Mg Tablet.dr 40 Mg PO DAILYAC [vitamin b1 tablet] 1 Tab PO DAILY Simvastatin 20 Mg Tablet 1 Tab PO QHS Albuterol Sulfate Neb Soln (Albuterol Sulfate) 2.5 Mg/3 Ml Vial.neb 1 Vial NEB PRN Q6HRS PRN Furosemide 20 Mg Tablet 1 Tab PO DAILY Carvedilol (Carvedilol) 3.125 Mg Tablet 3.125 Mg PO BIDWMEALS Aldactone (Spironolactone) 50 Mg Tablet 1 Tab PO DAILY Lactulose 20 Gm/30 Ml Solution 20 Gm PO TID Xifaxan (Rifaximin) 550 Mg Tablet 1 Tab PO BID 10 Days [Vitamin B12 Injectio] 1,000 Mcg IM QTU 21 Days Citalopram Hbr (Citalopram Hydrobromide) 40 Mg Tablet 10 Mg PO DAILY Allergies Allergies: Coded Allergies: hydromorphone (Verified Adverse Reaction, Intermediate, Doesn't like the way it makes her feel., 09/21/16) ROS Review of System Unable to obtain 2/2 AMS Physical Exam Physical Exam GENERAL: NAD, AMS HEENT: Head normocephalic, atraumatic, o2 by NC . NECK: Supple LUNGS: Decreased at bases HEART: RRR, S1, S2 present, ABDOMEN: Soft, NT EXTREMITIES: No cyanosis or edema. NEUROLOGIC: Confused, AMS PSYCHIATRIC: confused SKIN: No rash Mariano + Vital Signs Vital Signs Date Time Temp Pulse Resp B/P (MAP) Pulse Ox O2 Delivery O2 Flow Rate FiO2 10/15/19 11:00 79 20 107/43 (64) 98 Nasal Cannula 3.0 10/15/19 08:00 97.7 97.7 Assessment & Plan DOT - ATN sec to Severe Hypotension/ UTI Anuric , worsening renal function and elevated K Dialysis today , will need temp HDC ,Treatment plan mirian Mir CKD- was hospitalized earlier this year with DOT with recent baseline of 2.4- 2.5 at [facility] Baseline in 2017 1.5-1.7 HyperKalemia- HD today Anemia- Chronic , Hgb 6.8 at presentation Acute Encephalopathy secondary to UTI/Sepsis Abnormal CxR- Interstitial and alveolar opacities, may represent pulmonary edema. Small bilateral pleural effusions. 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 neg Coagulapathy with elevated INR secondary to etoh abuse Elevated Ammonia Alcoholic liver disease - EGD 09/2019 @ [place] w/ portal hypertension, past imaging w/ fatty liver/?cirrhosis H/o DU requiring IR embolization (2017) - IV PPI therapy EtOH abuse disorder, Severe Morbid obesity, BMI 55 Hx of CHF but preserved Ef last echo 08/07/19 CoVid pending DNR and DNI Dw RN Labs Labs Laboratory Tests Test 10/14/19 10:45 10/15/19 05:30 White Blood Count 6.3 x10^3/uL (4.0-11.0) 10.1 x10^3/uL (4.0-11.0) Red Blood Count 1.91 x10^6/uL (3.50-5.40) 2.16 x10^6/uL (3.50-5.40) Hemoglobin 6.8 g/dL (12.0-15.5) 7.6 g/dL (12.0-15.5) Hematocrit 20.1 % (36.0-47.0) 22.3 % (36.0-47.0) Mean Corpuscular Volume 105 fL (79-100) 103 fL (79-100) Mean Corpuscular Hemoglobin 36 pg (25-35) 35 pg (25-35) Mean Corpuscular Hemoglobin Concent 34 g/dL (31-37) 34 g/dL (31-37) Red Cell Distribution Width 19.0 % (11.5-14.5) 20.0 % (11.5-14.5) Platelet Count 19 x10^3/uL (140-400) 25 x10^3/uL (140-400) Neutrophils (%) (Auto) 78 % (31-73) Lymphocytes (%) (Auto) 15 % (24-48) Monocytes (%) (Auto) 6 % (0-9) Eosinophils (%) (Auto) 1 % (0-3) Basophils (%) (Auto) 0 % (0-3) Neutrophils # (Auto) 4.9 x10^3/uL (1.8-7.7) Lymphocytes # (Auto) 0.9 x10^3/uL (1.0-4.8) Monocytes # (Auto) 0.4 x10^3/uL (0.0-1.1) Eosinophils # (Auto) 0.0 x10^3/uL (0.0-0.7) Basophils # (Auto) 0.0 x10^3/uL (0.0-0.2) Prothrombin Time 24.9 SEC (11.7-14.0) 23.6 SEC (11.7-14.0) Prothromb Time International Ratio 2.3 (0.8-1.1) 2.1 (0.8-1.1) Activated Partial Thromboplast Time 60 SEC (24-38) Fibrinogen 134 mg/dL (200-440) D-Dimer (Yesenia) 1.33 ug/mlFEU (0.00-0.50) Sodium Level 140 mmol/L (136-145) 141 mmol/L (136-145) Potassium Level 5.2 mmol/L (3.5-5.1) 5.8 mmol/L (3.5-5.1) Chloride Level 107 mmol/L (98-107) 108 mmol/L (98-107) Carbon Dioxide Level 21 mmol/L (21-32) 23 mmol/L (21-32) Anion Gap 12 (6-14) 10 (6-14) Blood Urea Nitrogen 62 mg/dL (7-20) 64 mg/dL (7-20) Creatinine 4.8 mg/dL (0.6-1.0) 5.2 mg/dL (0.6-1.0) Estimated GFR (Cockcroft-Gault) 9.1 8.3 BUN/Creatinine Ratio 13 (6-20) 12 (6-20) Glucose Level 95 mg/dL (70-99) 91 mg/dL (70-99) Lactic Acid Level 1.4 mmol/L (0.4-2.0) Calcium Level 9.2 mg/dL (8.5-10.1) 8.6 mg/dL (8.5-10.1) Total Bilirubin 3.0 mg/dL (0.2-1.0) 4.5 mg/dL (0.2-1.0) Aspartate Amino Transf (AST/SGOT) 65 U/L (15-37) 57 U/L (15-37) Alanine Aminotransferase (ALT/SGPT) 45 U/L (14-59) 50 U/L (14-59) Alkaline Phosphatase 121 U/L (46-116) 120 U/L (46-116) Troponin I Quantitative < 0.017 ng/mL (0.000-0.055) Total Protein 5.5 g/dL (6.4-8.2) 5.3 g/dL (6.4-8.2) Albumin 2.8 g/dL (3.4-5.0) 2.9 g/dL (3.4-5.0) Albumin/Globulin Ratio 1.0 (1.0-1.7) 1.2 (1.0-1.7) Lipase 216 U/L (73-393) Laboratory Tests Test 10/15/19 05:30 White Blood Count 10.1 x10^3/uL (4.0-11.0) Red Blood Count 2.16 x10^6/uL (3.50-5.40) Hemoglobin 7.6 g/dL (12.0-15.5) Hematocrit 22.3 % (36.0-47.0) Mean Corpuscular Volume 103 fL (79-100) Mean Corpuscular Hemoglobin 35 pg (25-35) Mean Corpuscular Hemoglobin Concent 34 g/dL (31-37) Red Cell Distribution Width 20.0 % (11.5-14.5) Platelet Count 25 x10^3/uL (140-400) Prothrombin Time 23.6 SEC (11.7-14.0) Prothromb Time International Ratio 2.1 (0.8-1.1) Sodium Level 141 mmol/L (136-145) Potassium Level 5.8 mmol/L (3.5-5.1) Chloride Level 108 mmol/L (98-107) Carbon Dioxide Level 23 mmol/L (21-32) Anion Gap 10 (6-14) Blood Urea Nitrogen 64 mg/dL (7-20) Creatinine 5.2 mg/dL (0.6-1.0) Estimated GFR (Cockcroft-Gault) 8.3 BUN/Creatinine Ratio 12 (6-20) Glucose Level 91 mg/dL (70-99) Calcium Level 8.6 mg/dL (8.5-10.1) Total Bilirubin 4.5 mg/dL (0.2-1.0) Aspartate Amino Transf (AST/SGOT) 57 U/L (15-37) Alanine Aminotransferase (ALT/SGPT) 50 U/L (14-59) Alkaline Phosphatase 120 U/L (46-116) Total Protein 5.3 g/dL (6.4-8.2) Albumin 2.9 g/dL (3.4-5.0) Albumin/Globulin Ratio 1.2 (1.0-1.7) Review All relevant outside records, renal labs, imaging studies, telemetry/EKG's were reviewed. Images Images 1. Interstitial and alveolar opacities, may represent pulmonary edema. 2. Small bilateral pleural effusions. MELISSA MARTINEZ MD Oct 15, 2019 11:26
[2019-10-15] MEDS: cefTRIAXone IV Push 1 GM VIAL. IVP SCH (11:55)
[2019-10-15] MEDS: NYSTATIN TOPICAL POWDER 15GM BOTTLE. TP SCH ×2 (12:09→21:21)
[2019-10-15] MEDS ORDERED: LIDOCAINE WITH 8.4% SOD BICARB 3 ML DISP.SYRIN. INJ ONE (14:45)
--- NOTE | 2019-10-15 14:58 | NUR ---
SS following for discharge planning. SS reviewed pt chart and discussed with pt RN. Pt is from [facility], ; fax [phone]. Pt on IV Rocephin and starting dialysis. Pt getting trialysis cath today. COVID19 test pending. Pt's family not wanting skilled nursing dialysis. SS will continue to follow for discharge planning.
--- NOTE | 2019-10-15 15:46 | RAD ---
PORTABLE CHEST 1V History: Reason: Central line placement, possibility COVID / Spl. Instructions: / History: Comparison: October 14, 2019 Findings: Interval placement right IJ central line with tip projecting over the right atrium. Diffuse interstitial and alveolar opacities, increased on the right. Small bilateral layering pleural effusions, unchanged. Enlarged heart size, unchanged. Impression: 1. Interval placement right IJ central line. No pneumothorax. 2. Diffuse bilateral interstitial and alveolar opacities, increased on the right. 3. Small bilateral layering pleural effusions, unchanged. Electronically signed by: David Bourgeois DO (10/15/2019 3:43 PM) [id number]
[2019-10-15] MEDS ORDERED: IV NORMAL SALINE 1000ML BAG 1,000 ML IV PRN ×2 (16:06)
[2019-10-15] MEDS ORDERED: ALBUMIN HUMAN 25% 200 ML IV PRN (16:15)
[2019-10-15] MEDS ORDERED: 0.9 % SODIUM CHLORIDE 10 ML DISP.SYRIN. IV PRN ×2 (16:15)
[2019-10-15] MEDS ORDERED: DIALYSIS PATIENT. MC PRN ×2 (16:15)
[2019-10-15] MEDS ORDERED: diphenhydrAMINE 50 MG/ML VIAL IV PRN ×2 (16:15)
--- NOTE | 2019-10-15 17:21 | PDOC ---
PROGRESS NOTES Chief Complaint Chief Complaint A/P Acute Septic Encephalopathy secondary to UTI. continue abx Hypotension likely due to volume depletion, continue IVF, check lactate level which is normal. pressor support as needed. 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 check abdominal US Acute on Chronic Renal Failure secondary to vasomotor nephropapthy seen by Nephro last admission, admission creatine 4.8, baseline 2.5-3. creatine worse. nephro consult and to start HD temporarily H/o DU requiring IR embolization (2016) - IV PPI therapy Debility, weakness consult PT and OT EtOH abuse disorder, very morbid obesity, BMI 55 Severe protein calorie malnutrition Hx of CHF but preserved Ef last echo 08/07/19 dvt ppx: defered given low plt and elevated INR GI and nephro consult DNR and DNI Vitals Vitals Vital Signs Date Time Temp Pulse Resp B/P (MAP) Pulse Ox O2 Delivery O2 Flow Rate FiO2 10/15/19 17:00 70 18 127/63 (84) 98 Nasal Cannula 3.0 10/15/19 16:00 97.8 97.8 Physical Exam Lungs: Clear Labs LABS Laboratory Tests Test 10/15/19 05:30 White Blood Count 10.1 x10^3/uL (4.0-11.0) Red Blood Count 2.16 x10^6/uL (3.50-5.40) Hemoglobin 7.6 g/dL (12.0-15.5) Hematocrit 22.3 % (36.0-47.0) Mean Corpuscular Volume 103 fL (79-100) Mean Corpuscular Hemoglobin 35 pg (25-35) Mean Corpuscular Hemoglobin Concent 34 g/dL (31-37) Red Cell Distribution Width 20.0 % (11.5-14.5) Platelet Count 25 x10^3/uL (140-400) Prothrombin Time 23.6 SEC (11.7-14.0) Prothromb Time International Ratio 2.1 (0.8-1.1) Sodium Level 141 mmol/L (136-145) Potassium Level 5.8 mmol/L (3.5-5.1) Chloride Level 108 mmol/L (98-107) Carbon Dioxide Level 23 mmol/L (21-32) Anion Gap 10 (6-14) Blood Urea Nitrogen 64 mg/dL (7-20) Creatinine 5.2 mg/dL (0.6-1.0) Estimated GFR (Cockcroft-Gault) 8.3 BUN/Creatinine Ratio 12 (6-20) Glucose Level 91 mg/dL (70-99) Calcium Level 8.6 mg/dL (8.5-10.1) Total Bilirubin 4.5 mg/dL (0.2-1.0) Aspartate Amino Transf (AST/SGOT) 57 U/L (15-37) Alanine Aminotransferase (ALT/SGPT) 50 U/L (14-59) Alkaline Phosphatase 120 U/L (46-116) Total Protein 5.3 g/dL (6.4-8.2) Albumin 2.9 g/dL (3.4-5.0) Albumin/Globulin Ratio 1.2 (1.0-1.7) Assessment and Plan Assessmemt and Plan Problems Medical Problems: (1) AMS (altered mental status) Status: Acute (2) Anemia Status: Acute (3) Hypothermia Status: Acute (4) Liver failure Status: Acute (5) Pulmonary edema Status: Acute (6) UTI (urinary tract infection) Status: Acute Comment Review of Relevant I have reviewed the following items catarina (where applicable) has been applied. Labs Laboratory Tests Test 10/14/19 10:45 10/15/19 05:30 White Blood Count 6.3 x10^3/uL (4.0-11.0) 10.1 x10^3/uL (4.0-11.0) Red Blood Count 1.91 x10^6/uL (3.50-5.40) 2.16 x10^6/uL (3.50-5.40) Hemoglobin 6.8 g/dL (12.0-15.5) 7.6 g/dL (12.0-15.5) Hematocrit 20.1 % (36.0-47.0) 22.3 % (36.0-47.0) Mean Corpuscular Volume 105 fL (79-100) 103 fL (79-100) Mean Corpuscular Hemoglobin 36 pg (25-35) 35 pg (25-35) Mean Corpuscular Hemoglobin Concent 34 g/dL (31-37) 34 g/dL (31-37) Red Cell Distribution Width 19.0 % (11.5-14.5) 20.0 % (11.5-14.5) Platelet Count 19 x10^3/uL (140-400) 25 x10^3/uL (140-400) Neutrophils (%) (Auto) 78 % (31-73) Lymphocytes (%) (Auto) 15 % (24-48) Monocytes (%) (Auto) 6 % (0-9) Eosinophils (%) (Auto) 1 % (0-3) Basophils (%) (Auto) 0 % (0-3) Neutrophils # (Auto) 4.9 x10^3/uL (1.8-7.7) Lymphocytes # (Auto) 0.9 x10^3/uL (1.0-4.8) Monocytes # (Auto) 0.4 x10^3/uL (0.0-1.1) Eosinophils # (Auto) 0.0 x10^3/uL (0.0-0.7) Basophils # (Auto) 0.0 x10^3/uL (0.0-0.2) Prothrombin Time 24.9 SEC (11.7-14.0) 23.6 SEC (11.7-14.0) Prothromb Time International Ratio 2.3 (0.8-1.1) 2.1 (0.8-1.1) Activated Partial Thromboplast Time 60 SEC (24-38) Fibrinogen 134 mg/dL (200-440) D-Dimer (Yesenia) 1.33 ug/mlFEU (0.00-0.50) Sodium Level 140 mmol/L (136-145) 141 mmol/L (136-145) Potassium Level 5.2 mmol/L (3.5-5.1) 5.8 mmol/L (3.5-5.1) Chloride Level 107 mmol/L (98-107) 108 mmol/L (98-107) Carbon Dioxide Level 21 mmol/L (21-32) 23 mmol/L (21-32) Anion Gap 12 (6-14) 10 (6-14) Blood Urea Nitrogen 62 mg/dL (7-20) 64 mg/dL (7-20) Creatinine 4.8 mg/dL (0.6-1.0) 5.2 mg/dL (0.6-1.0) Estimated GFR (Cockcroft-Gault) 9.1 8.3 BUN/Creatinine Ratio 13 (6-20) 12 (6-20) Glucose Level 95 mg/dL (70-99) 91 mg/dL (70-99) Lactic Acid Level 1.4 mmol/L (0.4-2.0) Calcium Level 9.2 mg/dL (8.5-10.1) 8.6 mg/dL (8.5-10.1) Total Bilirubin 3.0 mg/dL (0.2-1.0) 4.5 mg/dL (0.2-1.0) Aspartate Amino Transf (AST/SGOT) 65 U/L (15-37) 57 U/L (15-37) Alanine Aminotransferase (ALT/SGPT) 45 U/L (14-59) 50 U/L (14-59) Alkaline Phosphatase 121 U/L (46-116) 120 U/L (46-116) Troponin I Quantitative < 0.017 ng/mL (0.000-0.055) Total Protein 5.5 g/dL (6.4-8.2) 5.3 g/dL (6.4-8.2) Albumin 2.8 g/dL (3.4-5.0) 2.9 g/dL (3.4-5.0) Albumin/Globulin Ratio 1.0 (1.0-1.7) 1.2 (1.0-1.7) Lipase 216 U/L (73-393) Laboratory Tests Test 10/15/19 05:30 White Blood Count 10.1 x10^3/uL (4.0-11.0) Red Blood Count 2.16 x10^6/uL (3.50-5.40) Hemoglobin 7.6 g/dL (12.0-15.5) Hematocrit 22.3 % (36.0-47.0) Mean Corpuscular Volume 103 fL (79-100) Mean Corpuscular Hemoglobin 35 pg (25-35) Mean Corpuscular Hemoglobin Concent 34 g/dL (31-37) Red Cell Distribution Width 20.0 % (11.5-14.5) Platelet Count 25 x10^3/uL (140-400) Prothrombin Time 23.6 SEC (11.7-14.0) Prothromb Time International Ratio 2.1 (0.8-1.1) Sodium Level 141 mmol/L (136-145) Potassium Level 5.8 mmol/L (3.5-5.1) Chloride Level 108 mmol/L (98-107) Carbon Dioxide Level 23 mmol/L (21-32) Anion Gap 10 (6-14) Blood Urea Nitrogen 64 mg/dL (7-20) Creatinine 5.2 mg/dL (0.6-1.0) Estimated GFR (Cockcroft-Gault) 8.3 BUN/Creatinine Ratio 12 (6-20) Glucose Level 91 mg/dL (70-99) Calcium Level 8.6 mg/dL (8.5-10.1) Total Bilirubin 4.5 mg/dL (0.2-1.0) Aspartate Amino Transf (AST/SGOT) 57 U/L (15-37) Alanine Aminotransferase (ALT/SGPT) 50 U/L (14-59) Alkaline Phosphatase 120 U/L (46-116) Total Protein 5.3 g/dL (6.4-8.2) Albumin 2.9 g/dL (3.4-5.0) Albumin/Globulin Ratio 1.2 (1.0-1.7) Microbiology 10/14/19 Blood Culture - Preliminary, Resulted NO GROWTH AFTER 1 DAY Medications Current Medications Ceftriaxone Sodium (Rocephin) 1 gm 1X ONCE IVP Last administered on 10/14/19at 12:07; Start 10/14/19 at 11:45; Stop 10/14/19 at 11:46; Status DC Ondansetron HCl (Zofran) 4 mg PRN Q8HRS PRN IV NAUSEA/VOMITING; Start 10/14/19 at 13:00; Stop 10/15/19 at 12:59; Status DC Pantoprazole Sodium (PROTONIX VIAL for IV PUSH) 40 mg DAILYAC IVP Last administered on 10/15/19at 09:31; Start 10/14/19 at 16:30 Ceftriaxone Sodium (Rocephin) 1 gm Q24H IVP Last administered on 10/15/19at 11:55; Start 10/15/19 at 12:00 Sodium Chloride 1,000 ml @ 500 mls/hr 1X ONCE IV Last administered on 10/14/19at 19:25; Start 10/14/19 at 18:45; Stop 10/14/19 at 20:44; Status DC Sodium Chloride 500 ml @ 500 mls/hr 1X ONCE IV Last administered on 10/14/19at 19:45; Start 10/14/19 at 19:45; Stop 10/14/19 at 20:44; Status DC Albumin Human 100 ml @ 100 mls/hr BID IV Last administered on 10/15/19at 09:31; Start 10/14/19 at 21:00 Norepinephrine Bitartrate 8 mg/ Dextrose 258 ml @ 28.27 mls/ hr CONT PRN IV PER PROTOCOL Last administered on 10/15/19at 09:33; Start 10/14/19 at 21:45 Nystatin (Nystop) 1 echo BID TP Last administered on 10/15/19at 12:09; Start 10/15/19 at 09:00 Sodium Chloride 1,000 ml @ 75 mls/hr [id number] IV Last administered on 10/15/19at 01:00; Start 10/15/19 at 01:00 Lidocaine HCl (Buffered Lidocaine 1%) 6 ml 1X ONCE INJ Last administered on 10/15/19at 15:07; Start 10/15/19 at 14:45; Stop 10/15/19 at 14:58; Status DC Sodium Chloride 1,000 ml @ 1,000 mls/hr Q1H PRN IV hypotension; Start 10/15/19 at 16:06; Stop 10/15/19 at 22:05 Albumin Human 200 ml @ 200 mls/hr 1X PRN PRN IV Hypotension; Start 10/15/19 at 16:15; Stop 10/15/19 at 22:14 Diphenhydramine HCl (Benadryl) 25 mg 1X PRN PRN IV ITCHING; Start 10/15/19 at 16:15; Stop 10/16/19 at 16:14 Diphenhydramine HCl (Benadryl) 25 mg 1X PRN PRN IV ITCHING; Start 10/15/19 at 16:15; Stop 10/16/19 at 16:14 Sodium Chloride (Normal Saline Flush) 10 ml 1X PRN PRN IV AP catheter pack; Start 10/15/19 at 16:15; Stop 10/16/19 at 16:14 Sodium Chloride (Normal Saline Flush) 10 ml 1X PRN PRN IV [employer] catheter pack; Start 10/15/19 at 16:15; Stop 10/16/19 at 16:14 Sodium Chloride 1,000 ml @ 400 mls/hr Q2H30M PRN IV PATENCY; Start 10/15/19 at 16:06; Stop 10/16/19 at 04:05 Info (PHARMACY MONITORING -- do not chart) 1 each PRN DAILY PRN MC SEE COMMENTS; Start 10/15/19 at 16:15; Status UNV Info (PHARMACY MONITORING -- do not chart) 1 each PRN DAILY PRN MC SEE COMMENTS; Start 10/15/19 at 16:15 Active Scripts Active Levothyroxine Sodium 100 Mcg Tablet 100 Mcg PO DAILY06 90 Days Trazodone Hcl 50 Mg Tablet 50 Mg PO QHS [Folic Acid] 1 MG Tablet 1 Mg PO DAILY Nystop (Nystatin) 60 Gm Powder 1 Echo TP BID 7 Days Reported Voltaren (Diclofenac Sodium) 100 Gm Gel..gram. 2 Gm TP BID 30 Days apply to affected area(s) Tylenol (Acetaminophen) 325 Mg Tablet 1 Tab PO PRN DAILY PRN Protonix (Pantoprazole Sodium) 40 Mg Tablet.dr 40 Mg PO DAILYAC [vitamin b1 tablet] 1 Tab PO DAILY Simvastatin 20 Mg Tablet 1 Tab PO QHS Albuterol Sulfate Neb Soln (Albuterol Sulfate) 2.5 Mg/3 Ml Vial.neb 1 Vial NEB PRN Q6HRS PRN Furosemide 20 Mg Tablet 1 Tab PO DAILY Carvedilol (Carvedilol) 3.125 Mg Tablet 3.125 Mg PO BIDWMEALS Aldactone (Spironolactone) 50 Mg Tablet 1 Tab PO DAILY Lactulose 20 Gm/30 Ml Solution 20 Gm PO TID Xifaxan (Rifaximin) 550 Mg Tablet 1 Tab PO BID 10 Days [Vitamin B12 Injectio] 1,000 Mcg IM QTU 21 Days Citalopram Hbr (Citalopram Hydrobromide) 40 Mg Tablet 10 Mg PO DAILY Vitals/I & O Vital Sign - Last 24 Hours 10/14/19 10/14/19 10/14/19 10/14/19 18:00 18:00 18:45 19:00 Temp 95.3 97.3 95.3 97.3 Pulse 70 70 70 90 Resp 18 19 20 18 B/P (MAP) 84/47 (59) 85/47 69/36 74/50 (58) Pulse Ox 92 90 O2 Delivery Nasal Cannula Nasal Cannula O2 Flow Rate 2.0 2.0 10/14/19 10/14/19 10/14/19 10/14/19 19:30 19:53 20:00 20:30 Temp 98.3 98.3 Pulse 72 72 72 Resp 18 18 18 B/P (MAP) 71/36 (48) 62/32 (42) 74/36 (49) Pulse Ox 92 93 92 O2 Delivery Nasal Cannula Nasal Cannula Nasal Cannula Nasal Cannula O2 Flow Rate 3.0 3.0 3.0 3.0 10/14/19 10/14/19 10/14/19 10/14/19 21:00 22:00 23:00 23:49 Pulse 78 76 84 Resp 18 18 B/P (MAP) 85/37 (53) 91/42 (58) 109/40 (63) Pulse Ox 92 92 92 O2 Delivery Nasal Cannula Nasal Cannula Nasal Cannula Nasal Cannula O2 Flow Rate 3.0 3.0 3.0 3.0 10/15/19 10/15/19 10/15/19 10/15/19 00:00 01:00 02:00 03:00 Temp 97.8 97.8 Pulse 82 82 82 79 Resp 18 18 18 14 B/P (MAP) 83/47 (59) 80/46 (57) 86/43 (57) 93/46 (62) Pulse Ox 96 96 98 97 O2 Delivery Nasal Cannula Nasal Cannula Nasal Cannula Nasal Cannula O2 Flow Rate 3.0 3.0 3.0 3.0 10/15/19 10/15/19 10/15/19 10/15/19 04:00 04:10 05:00 06:00 Temp 97.9 97.9 Pulse 79 79 80 Resp 14 14 B/P (MAP) 96/37 (56) 101/35 (57) 100/41 (60) Pulse Ox 98 96 98 O2 Delivery Nasal Cannula Nasal Cannula Nasal Cannula Nasal Cannula O2 Flow Rate 3.0 3.0 3.0 3.0 10/15/19 10/15/19 10/15/19/15/20 07:00 08:00 08:00 09:00 Temp 97.7 97.7 Pulse 80 74 66 Resp 16 18 18 B/P (MAP) 96/43 (60) 84/40 (55) 84/41 (55) Pulse Ox 99 98 97 O2 Delivery Nasal Cannula Nasal Cannula Nasal Cannula Nasal Cannula O2 Flow Rate 3.0 3.0 3.0 3.0 10/15/19 10/15/19 10/15/19 10/15/19 09:15 09:45 10:00 11:00 Pulse 74 80 77 79 Resp 16 20 B/P (MAP) 77/41 (53) 91/51 (64) 126/52 (76) 107/43 (64) Pulse Ox 96 98 O2 Delivery Nasal Cannula Nasal Cannula O2 Flow Rate 3.0 3.0 10/15/19 10/15/19 10/15/19 10/15/19 12:00 12:00 13:00 14:00 Temp 97.7 97.7 Pulse 69 74 75 Resp 18 16 16 B/P (MAP) 123/55 (77) 108/50 (69) 103/43 (63) Pulse Ox 96 99 98 O2 Delivery Nasal Cannula Nasal Cannula Nasal Cannula Nasal Cannula O2 Flow Rate 3.0 3.0 3.0 3.0 10/15/19 10/15/19 10/15/19 10/15/19 15:00 16:00 16:00 17:00 Temp 97.8 97.8 Pulse 74 74 70 Resp 16 16 18 B/P (MAP) 131/54 (79) 126/59 (81) 127/63 (84) Pulse Ox 99 98 98 O2 Delivery Nasal Cannula Nasal Cannula Nasal Cannula Nasal Cannula O2 Flow Rate 3.0 3.0 3.0 3.0 Intake and Output 10/14/19 10/14/19 10/15/19 15:00 23:00 07:00 Intake Total 2000 ml 620 ml Output Total 10 ml 5 ml Balance 1990 ml 615 ml Justicifation of Admission Dx: Justifications for Admission: Justification of Admission Dx: Yes Altered Mental Status: Altered Mental Status TJ JAIMES MD Oct 15, 2019 17:21
[2019-10-16] VITALS (26 sets, daily range): BP systolic 82–167; BP diastolic 39–70
[2019-10-16] MEDS: IV NORMAL SALINE 1000ML BAG 1,000 ML IV SCH ×3 (02:52→22:23)
[2019-10-16 05:43] LABS: ALBUMIN 3.4 g/dL (3.4-5.0); CALCIUM 8.3 mg/dL (8.5-10.1); CREATININE 4.3 mg/dL (0.6-1.0); GFR 10.3; PHOSPHORUS 6.3 mg/dL (2.6-4.7); POTASSIUM 5.2 mmol/L (3.5-5.1)
[2019-10-16] MEDS: PANTOPRAZOLE IV PUSH 40 MG VIAL. IVP SCH (08:36)
[2019-10-16] MEDS: ALBUMIN HUMAN 25% 100 ML IV SCH ×2 (08:36→21:00)
[2019-10-16] MEDS: NYSTATIN TOPICAL POWDER 15GM BOTTLE. TP SCH ×2 (08:40→21:01)
[2019-10-16] MEDS: NOREPINEPHRINE VIAL 8 MG in IV DEXTROSE 5% 250 ML IV PRN (08:40)
--- NOTE | 2019-10-16 08:42 | NUR ---
Rehab screen completed. Pt would benefit from PT/OT eval and treat. Please initiate when pt medically appropriate. Addendum: 10/16/19 at 0853 by AMMY MCMILLAN PT Amended: Links added.
--- NOTE | 2019-10-16 08:58 | PDOC ---
SUBJECTIVE ROS Stable, more awake but not responding to questions, On o2 by NC OBJECTIVE Vital Signs Vital Signs Date Time Temp Pulse Resp B/P (MAP) Pulse Ox O2 Delivery O2 Flow Rate FiO2 10/16/19 08:00 76 12 125/45 (71) 97 Nasal Cannula 4.0 10/16/19 04:00 96.0 96.0 I & 0 Intake and Output 10/16/19 07:00 Intake Total 2655.3 ml Output Total 90 ml Balance 2565.3 ml Intake Oral 0 ml IV Total 2655.3 ml Output Urine Total 90 ml PHYSICAL EXAM Physical Exam GENERAL: NAD, AMS HEENT: Head normocephalic, o2 by NC . NECK: Supple LUNGS: Decreased at bases HEART: RRR, S1, S2 present, ABDOMEN: Soft, NT EXTREMITIES: No cyanosis or edema. 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 Small bilateral pleural effusions. 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 neg Coagulapathy with elevated INR secondary to etoh abuse Elevated Ammonia Alcoholic liver disease - E[facility] 09/2019 @ [facility] w/ portal hypertension, past imaging w/ fatty liver/?cirrhosis H/o DU requiring IR embolization (2017) - IV PPI therapy EtOH abuse disorder, Severe Morbid obesity, BMI 55 Hx of CHF but preserved Ef last echo 08/07/19 CoVid negative Pt is DNR / DNI COMMENT/RELEVANT DATA Meds Current Medications Medications (Trade) Dose Ordered Sig/Selene Start Time Stop Time Status Last Admin Dose Admin Albumin Human 200 ml @ 200 mls/hr 1X PRN PRN 7/15/20 16:15 10/15/19 22:14 DC Ceftriaxone Sodium (Rocephin) 1 gm Q24H 10/15/19 12:00 10/15/19 11:55 1 GM Diphenhydramine HCl (Benadryl) 25 mg 1X PRN PRN 10/15/19 16:15 10/16/19 16:14 Info (PHARMACY MONITORING -- do not chart) 1 each PRN DAILY PRN 10/15/19 16:15 Lidocaine HCl (Buffered Lidocaine 1%) 6 ml 1X ONCE 10/15/19 14:45 10/15/19 14:58 DC 10/15/19 15:07 4 ML Norepinephrine Bitartrate 8 mg/ Dextrose 258 ml @ 28.27 mls/ hr CONT PRN 10/14/19 21:45 10/16/19 08:40 28.27 MLS/HR Nystatin (Nystop) 1 echo BID 10/15/19 09:00 10/16/19 08:40 1 ECHO Ondansetron HCl (Zofran) 4 mg PRN Q8HRS PRN 10/14/19 13:00 10/15/19 12:59 DC Pantoprazole Sodium (PROTONIX VIAL for IV PUSH) 40 mg DAILYAC 10/14/19 16:30 10/16/19 08:36 40 MG Sodium Chloride 1,000 ml @ 400 mls/hr Q2H30M PRN 10/15/19 16:06 10/16/19 04:05 DC Sodium Chloride (Normal Saline Flush) 10 ml 1X PRN PRN 10/15/19 16:15 10/16/19 16:14 Lab Laboratory Tests Test 10/16/19 04:45 Sodium Level 140 mmol/L (136-145) Potassium Level 5.2 mmol/L (3.5-5.1) Chloride Level 105 mmol/L (98-107) Carbon Dioxide Level 26 mmol/L (21-32) Anion Gap 9 (6-14) Blood Urea Nitrogen 49 mg/dL (7-20) Creatinine 4.3 mg/dL (0.6-1.0) Estimated GFR (Cockcroft-Gault) 10.3 Glucose Level 106 mg/dL (70-99) Calcium Level 8.3 mg/dL (8.5-10.1) Phosphorus Level 6.3 mg/dL (2.6-4.7) Albumin 3.4 g/dL (3.4-5.0) Results All relevant outside records, renal labs, imaging studies, telemetry/EKG's were reviewed. Justicifation of Admission Dx: Justifications for Admission: Justification of Admission Dx: Yes Altered Mental Status: Altered Mental Status MELISSA MARTINEZ MD Oct 16, 2019 08:58
--- NOTE | 2019-10-16 10:53 | PDOC ---
Objective: Objective: D/w nurse - no bleeding, still not too responsive, on pressor. Vital Signs: Vital Signs Date Time Temp Pulse Resp B/P (MAP) Pulse Ox O2 Delivery O2 Flow Rate FiO2 10/16/19 09:08 97.6 76 12 99/39 (59) 97 Nasal Cannula 4.0 97.6 Labs: Laboratory Tests Test 10/16/19 04:45 Sodium Level 140 mmol/L Potassium Level 5.2 mmol/L Chloride Level 105 mmol/L Carbon Dioxide Level 26 mmol/L Anion Gap 9 Blood Urea Nitrogen 49 mg/dL Creatinine 4.3 mg/dL Estimated GFR (Cockcroft-Gault) 10.3 Glucose Level 106 mg/dL Calcium Level 8.3 mg/dL Phosphorus Level 6.3 mg/dL Albumin 3.4 g/dL BLOOD CULTURE Preliminary NO GROWTH AFTER 1 DAY Imaging: CXR 10/14 Impression: 1. Interval placement right IJ central line. No pneumothorax. 2. Diffuse bilateral interstitial and alveolar opacities, increased on the right. 3. Small bilateral layering pleural effusions, unchanged. Abd US 10/13 IMPRESSION: * Limited evaluation secondary to overlying soft tissue structures obscuring. There is edema seen within the soft tissues. There is a relatively hypoechoic region seen at the left upper quadrant but difficult to tell if this is secondary to edema within the area or fluid. PE: GEN: was resting, linda hugger LUNGS: clear, NC 4L HEART: RR ABD: soft, obese, non-tender NEURO/PSYCH: mouths "hi" and "hospital" A/P: AMS, hypothermia, UTI, CHF, CKD/DOT (has now dialyzed) Chronic macrocytic anemia (Hgb checked yesterday - improved w/ transfusion) Alcoholic liver disease w/ abnormal labs, h/o DU - recent E[facility] w/o ulcers, noted evidence of portal hypertension COVID-19 negative -- Continue PPI, will recheck labs in a.m. Justicifation of Admission Dx: Justifications for Admission: Justification of Admission Dx: Yes Altered Mental Status: Altered Mental Status BLAKE HOPKINS Oct 16, 2019 10:53
[2019-10-16] MEDS: cefTRIAXone IV Push 1 GM VIAL. IVP SCH (12:13)
[2019-10-16] MEDS ORDERED: IV NORMAL SALINE 1000ML BAG 1,000 ML IV PRN ×2 (14:00)
[2019-10-16] MEDS ORDERED: DIALYSIS PATIENT. MC PRN (14:00)
--- NOTE | 2019-10-16 14:28 | PDOC ---
PROGRESS NOTES Chief Complaint Chief Complaint A/P Acute Septic Encephalopathy secondary to UTI. continue abx Hypotension likely due to volume depletion, continue IVF, check lactate level which is normal. pressor support as needed. 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 check abdominal US Acute on Chronic Renal Failure secondary to vasomotor nephropapthy seen by Nephro last admission, admission creatine 4.8, baseline 2.5-3. creatine worse. nephro consult and to start HD temporarily H/o DU requiring IR embolization (2016) - IV PPI therapy Debility, weakness consult PT and OT EtOH abuse disorder, very morbid obesity, BMI 55 Severe protein calorie malnutrition Hx of CHF but preserved Ef last echo 08/07/19 dvt ppx: defered given low plt and elevated INR GI and nephro consult DNR and DNI Vitals Vitals Vital Signs Date Time Temp Pulse Resp B/P (MAP) Pulse Ox O2 Delivery O2 Flow Rate FiO2 10/16/19 14:00 80 12 114/45 (68) 100 Nasal Cannula 2.0 10/16/19 12:00 97.8 97.8 Physical Exam Lungs: Clear Labs LABS Laboratory Tests Test 10/16/19 04:45 Sodium Level 140 mmol/L (136-145) Potassium Level 5.2 mmol/L (3.5-5.1) Chloride Level 105 mmol/L (98-107) Carbon Dioxide Level 26 mmol/L (21-32) Anion Gap 9 (6-14) Blood Urea Nitrogen 49 mg/dL (7-20) Creatinine 4.3 mg/dL (0.6-1.0) Estimated GFR (Cockcroft-Gault) 10.3 Glucose Level 106 mg/dL (70-99) Calcium Level 8.3 mg/dL (8.5-10.1) Phosphorus Level 6.3 mg/dL (2.6-4.7) Albumin 3.4 g/dL (3.4-5.0) Assessment and Plan Assessmemt and Plan Problems Medical Problems: (1) AMS (altered mental status) Status: Acute (2) Anemia Status: Acute (3) Hypothermia Status: Acute (4) Liver failure Status: Acute (5) Pulmonary edema Status: Acute (6) UTI (urinary tract infection) Status: Acute Comment Review of Relevant I have reviewed the following items catarina (where applicable) has been applied. Labs Laboratory Tests Test 10/15/19 05:30 10/16/19 04:45 White Blood Count 10.1 x10^3/uL (4.0-11.0) Red Blood Count 2.16 x10^6/uL (3.50-5.40) Hemoglobin 7.6 g/dL (12.0-15.5) Hematocrit 22.3 % (36.0-47.0) Mean Corpuscular Volume 103 fL (79-100) Mean Corpuscular Hemoglobin 35 pg (25-35) Mean Corpuscular Hemoglobin Concent 34 g/dL (31-37) Red Cell Distribution Width 20.0 % (11.5-14.5) Platelet Count 25 x10^3/uL (140-400) Prothrombin Time 23.6 SEC (11.7-14.0) Prothromb Time International Ratio 2.1 (0.8-1.1) Sodium Level 141 mmol/L (136-145) 140 mmol/L (136-145) Potassium Level 5.8 mmol/L (3.5-5.1) 5.2 mmol/L (3.5-5.1) Chloride Level 108 mmol/L (98-107) 105 mmol/L (98-107) Carbon Dioxide Level 23 mmol/L (21-32) 26 mmol/L (21-32) Anion Gap 10 (6-14) 9 (6-14) Blood Urea Nitrogen 64 mg/dL (7-20) 49 mg/dL (7-20) Creatinine 5.2 mg/dL (0.6-1.0) 4.3 mg/dL (0.6-1.0) Estimated GFR (Cockcroft-Gault) 8.3 10.3 BUN/Creatinine Ratio 12 (6-20) Glucose Level 91 mg/dL (70-99) 106 mg/dL (70-99) Calcium Level 8.6 mg/dL (8.5-10.1) 8.3 mg/dL (8.5-10.1) Total Bilirubin 4.5 mg/dL (0.2-1.0) Aspartate Amino Transf (AST/SGOT) 57 U/L (15-37) Alanine Aminotransferase (ALT/SGPT) 50 U/L (14-59) Alkaline Phosphatase 120 U/L (46-116) Total Protein 5.3 g/dL (6.4-8.2) Albumin 2.9 g/dL (3.4-5.0) 3.4 g/dL (3.4-5.0) Albumin/Globulin Ratio 1.2 (1.0-1.7) Hepatitis B Surface Antigen Nonreactive (Nonreactive) Hepatitis B Surface Antibody Nonreactive Phosphorus Level 6.3 mg/dL (2.6-4.7) Laboratory Tests Test 10/16/19 04:45 Sodium Level 140 mmol/L (136-145) Potassium Level 5.2 mmol/L (3.5-5.1) Chloride Level 105 mmol/L (98-107) Carbon Dioxide Level 26 mmol/L (21-32) Anion Gap 9 (6-14) Blood Urea Nitrogen 49 mg/dL (7-20) Creatinine 4.3 mg/dL (0.6-1.0) Estimated GFR (Cockcroft-Gault) 10.3 Glucose Level 106 mg/dL (70-99) Calcium Level 8.3 mg/dL (8.5-10.1) Phosphorus Level 6.3 mg/dL (2.6-4.7) Albumin 3.4 g/dL (3.4-5.0) Microbiology 10/14/19 Blood Culture - Preliminary, Resulted NO GROWTH AFTER 2 DAYS Medications Current Medications Ceftriaxone Sodium (Rocephin) 1 gm 1X ONCE IVP Last administered on 10/14/19at 12:07; Start 10/14/19 at 11:45; Stop 10/14/19 at 11:46; Status DC Ondansetron HCl (Zofran) 4 mg PRN Q8HRS PRN IV NAUSEA/VOMITING; Start 10/14/19 at 13:00; Stop 10/15/19 at 12:59; Status DC Pantoprazole Sodium (PROTONIX VIAL for IV PUSH) 40 mg DAILYAC IVP Last administered on 10/16/19at 08:36; Start 10/14/19 at 16:30 Ceftriaxone Sodium (Rocephin) 1 gm Q24H IVP Last administered on 10/16/19at 12:13; Start 10/15/19 at 12:00 Sodium Chloride 1,000 ml @ 500 mls/hr 1X ONCE IV Last administered on 10/14/19at 19:25; Start 10/14/19 at 18:45; Stop 10/14/19 at 20:44; Status DC Sodium Chloride 500 ml @ 500 mls/hr 1X ONCE IV Last administered on 10/14/19at 19:45; Start 10/14/19 at 19:45; Stop 10/14/19 at 20:44; Status DC Albumin Human 100 ml @ 100 mls/hr BID IV Last administered on 10/16/19at 08:36; Start 10/14/19 at 21:00 Norepinephrine Bitartrate 8 mg/ Dextrose 258 ml @ 28.27 mls/ hr CONT PRN IV PER PROTOCOL Last administered on 10/16/19at 08:40; Start 10/14/19 at 21:45 Nystatin (Nystop) 1 jony BID TP Last administered on 10/16/19at 08:40; Start 10/15/19 at 09:00 Sodium Chloride 1,000 ml @ 75 mls/hr [id number] IV Last administered on 10/16/19at 08:36; Start 10/15/19 at 01:00 Lidocaine HCl (Buffered Lidocaine 1%) 6 ml 1X ONCE INJ Last administered on 10/15/19at 15:07; Start 10/15/19 at 14:45; Stop 10/15/19 at 14:58; Status DC Sodium Chloride 1,000 ml @ 1,000 mls/hr Q1H PRN IV hypotension; Start 10/15/19 at 16:06; Stop 10/15/19 at 22:05; Status DC Albumin Human 200 ml @ 200 mls/hr 1X PRN PRN IV Hypotension; Start 10/15/19 at 16:15; Stop 10/15/19 at 22:14; Status DC Diphenhydramine HCl (Benadryl) 25 mg 1X PRN PRN IV ITCHING; Start 10/15/19 at 16:15; Stop 10/16/19 at 16:14 Diphenhydramine HCl (Benadryl) 25 mg 1X PRN PRN IV ITCHING; Start 10/15/19 at 16:15; Stop 10/16/19 at 16:14 Sodium Chloride (Normal Saline Flush) 10 ml 1X PRN PRN IV AP catheter pack; Start 10/15/19 at 16:15; Stop 10/16/19 at 16:14 Sodium Chloride (Normal Saline Flush) 10 ml 1X PRN PRN IV [employer] catheter pack; Start 10/15/19 at 16:15; Stop 10/16/19 at 16:14 Sodium Chloride 1,000 ml @ 400 mls/hr Q2H30M PRN IV PATENCY; Start 10/15/19 at 16:06; Stop 10/16/19 at 04:05; Status DC Info (PHARMACY MONITORING -- do not chart) 1 each PRN DAILY PRN MC SEE COMMENTS; Start 10/15/19 at 16:15; Status UNV Info (PHARMACY MONITORING -- do not chart) 1 each PRN DAILY PRN MC SEE COMMENTS; Start 10/15/19 at 16:15 Sodium Chloride 1,000 ml @ 1,000 mls/hr Q1H PRN IV hypotension; Start 10/16/19 at 14:00; Stop 10/16/19 at 19:00 Sodium Chloride 1,000 ml @ 400 mls/hr Q2H30M PRN IV PATENCY; Start 10/16/19 at 14:00; Stop 10/16/19 at 19:00 Info (PHARMACY MONITORING -- do not chart) 1 each PRN DAILY PRN MC SEE COMMENTS; Start 10/16/19 at 14:00; Status UNV Active Scripts Active Levothyroxine Sodium 100 Mcg Tablet 100 Mcg PO DAILY06 90 Days Trazodone Hcl 50 Mg Tablet 50 Mg PO QHS [Folic Acid] 1 MG Tablet 1 Mg PO DAILY Nystop (Nystatin) 60 Gm Powder 1 Jony TP BID 7 Days Reported Voltaren (Diclofenac Sodium) 100 Gm Gel..gram. 2 Gm TP BID 30 Days apply to affected area(s) Tylenol (Acetaminophen) 325 Mg Tablet 1 Tab PO PRN DAILY PRN Protonix (Pantoprazole Sodium) 40 Mg Tablet.dr 40 Mg PO DAILYAC [vitamin b1 tablet] 1 Tab PO DAILY Simvastatin 20 Mg Tablet 1 Tab PO QHS Albuterol Sulfate Neb Soln (Albuterol Sulfate) 2.5 Mg/3 Ml Vial.neb 1 Vial NEB PRN Q6HRS PRN Furosemide 20 Mg Tablet 1 Tab PO DAILY Carvedilol (Carvedilol) 3.125 Mg Tablet 3.125 Mg PO BIDWMEALS Aldactone (Spironolactone) 50 Mg Tablet 1 Tab PO DAILY Lactulose 20 Gm/30 Ml Solution 20 Gm PO TID Xifaxan (Rifaximin) 550 Mg Tablet 1 Tab PO BID 10 Days [Vitamin B12 Injectio] 1,000 Mcg IM QTU 21 Days Citalopram Hbr (Citalopram Hydrobromide) 40 Mg Tablet 10 Mg PO DAILY Vitals/I & O Vital Sign - Last 24 Hours 10/15/19 10/15/19 10/15/19 10/15/19 15:00 16:00 16:00 17:00 Temp 97.8 97.8 Pulse 74 74 70 Resp 16 16 18 B/P (MAP) 131/54 (79) 126/59 (81) 127/63 (84) Pulse Ox 99 98 98 O2 Delivery Nasal Cannula Nasal Cannula Nasal Cannula Nasal Cannula O2 Flow Rate 3.0 3.0 3.0 3.0 10/15/19 10/15/19 10/15/19 10/15/19 17:15 19:00 20:00 20:00 Temp 96.1 96.1 Pulse 73 85 87 Resp 20 20 B/P (MAP) 102/44 (63) 113/57 (75) 131/55 (80) Pulse Ox 93 94 O2 Delivery Nasal Cannula Nasal Cannula Nasal Cannula O2 Flow Rate 4.0 4.0 4.0 10/15/19 10/15/19 10/15/19 10/16/19 21:00 22:00 23:00 00:00 Temp 94.1 94.1 Pulse 80 80 75 74 Resp 20 24 20 24 B/P (MAP) 150/60 (90) 148/65 (92) 136/49 (78) 132/49 (76) Pulse Ox 97 99 99 100 O2 Delivery Nasal Cannula Nasal Cannula Nasal Cannula Nasal Cannula O2 Flow Rate 4.0 4.0 4.0 4.0 10/16/19 10/16/19 10/16/19 10/16/19 00:00 00:15 01:00 01:15 Pulse 73 73 74 Resp 28 B/P (MAP) 88/46 (60) 82/45 (57) 107/51 (69) Pulse Ox 99 O2 Delivery Nasal Cannula Nasal Cannula O2 Flow Rate 4.0 4.0 10/16/19 10/16/19 10/16/19 10/16/19 02:00 03:00 04:00 04:00 Temp 96.0 96.0 Pulse 76 76 74 Resp 32 28 28 B/P (MAP) 122/49 (73) 123/51 (75) 90/48 (62) Pulse Ox 98 98 O2 Delivery Nasal Cannula Nasal Cannula Nasal Cannula Nasal Cannula O2 Flow Rate 4.0 4.0 4.0 4.0 10/16/19 10/16/19 10/16/19 10/16/19 05:00 06:25 07:00 08:00 Pulse 76 76 79 Resp 22 16 12 B/P (MAP) 112/55 (74) 126/52 (76) 124/57 (79) Pulse Ox 99 99 O2 Delivery Nasal Cannula Nasal Cannula Nasal Cannula Nasal Cannula O2 Flow Rate 4.0 4.0 4.0 4.0 10/16/19 10/16/19 10/16/19 10/16/19 08:00 09:08 10:00 11:00 Temp 97.6 97.6 Pulse 76 76 80 80 Resp 12 12 12 12 B/P (MAP) 125/45 (71) 99/39 (59) 116/44 (68) 124/57 (79) Pulse Ox 97 97 98 97 O2 Delivery Nasal Cannula Nasal Cannula Nasal Cannula Nasal Cannula O2 Flow Rate 4.0 4.0 4.0 4.0 10/16/19 10/16/19 10/16/19 10/16/19 12:00 12:00 13:00 14:00 Temp 97.8 97.8 Pulse 78 78 80 Resp 12 12 12 B/P (MAP) 137/59 (85) 119/53 (75) 114/45 (68) Pulse Ox 100 100 100 O2 Delivery Nasal Cannula Nasal Cannula Nasal Cannula Nasal Cannula O2 Flow Rate 2.0 2.0 2.0 2.0 Intake and Output 10/15/19 10/15/19 10/16/19 15:00 23:00 07:00 Intake Total 1402 ml 1253.3 ml Output Total 60 ml 10 ml 20 ml Balance -60 ml 1392 ml 1233.3 ml Justicifation of Admission Dx: Justifications for Admission: Justification of Admission Dx: Yes Altered Mental Status: Altered Mental Status TJ JAIMES MD Oct 16, 2019 14:28
--- NOTE | 2019-10-16 14:35 | NUR ---
SS following up with discharge planning. SS reviewed pt chart and discussed with pt RN. Pt is currently requiring oxygen and is on IV Rocephin. Pt COVID19 negative. Pt is skilled rehabilitation resident from [facility], ; fax [phone]. SS will continue to follow for discharge planning.
--- NOTE | 2019-10-16 15:54 | RAD ---
Procedure: Ultrasound-guided placement of right internal jugular temporary dialysis catheter10/16/2019 1:49 PM Clinical Indication: Trialysis catheter for hemodialysis Discussion: The risks and benefits of the procedure were discussed the patient and/or their dental sales representative. Informed consent was obtained. A timeout procedure was performed. All elements of maximal sterile barrier technique including the use of a cap, mask, sterile gown, sterile gloves, large sterile sheet, appropriate hand hygiene, and 2% chlorhexidine for cutaneous antisepsis (or acceptable alternative antiseptic per current guidelines) were followed for this procedure. The patient was prepped and draped in the usual sterile fashion. Ultrasound interrogation of the right neck revealed patency and compressibility of the right internal jugular vein. A 21-gauge micropuncture was then used to gain access to this vein under ultrasound guidance. A hard copy ultrasound image was recorded. A guidewire was advanced centrally. 5 Bulgarian sheath was placed. Over a wire following dilatation, a triple-lumen temporary dialysis catheter was advanced centrally. Catheter was found to flush and aspirate normally. Follow-up chest radiograph demonstrates tip at the cavoatrial junction. Catheter secured in place and a sterile dressing was applied. No immediate complications were identified. Impression: Successful ultrasound-guided placement of right internal jugular triple-lumen temporary dialysis catheter
[2019-10-17] VITALS (34 sets, daily range): BP systolic 73–155; BP diastolic 41–79
[2019-10-17 06:13] LABS: ALBUMIN 3.6 g/dL (3.4-5.0); ALBUMIN/GLOBULIN RATIO 1.6 (1.0-1.7); CALCIUM 8.3 mg/dL (8.5-10.1); CREATININE 3.7 mg/dL (0.6-1.0); GFR 12.3; PHOSPHORUS 4.7 mg/dL (2.6-4.7); POTASSIUM 4.1 mmol/L (3.5-5.1); TOTAL BILIRUBIN 3.7 mg/dL (0.2-1.0); TOTAL PROTEIN 5.9 g/dL (6.4-8.2)
[2019-10-17 06:21] LABS: RED BLOOD COUNT 1.91 x10^6/uL (3.50-5.40); RED CELL DISTRIBUTION WIDTH 19.1 % (11.5-14.5); WHITE BLOOD COUNT 5.6 x10^3/uL (4.0-11.0)
[2019-10-17 06:32] LABS: PROTHROMBIN TIME PATIENT 22.8 SEC (11.7-14.0)
[2019-10-17 06:55] LABS: HEMATOCRIT 19.7 % (36.0-47.0); HEMOGLOBIN 6.7 g/dL (12.0-15.5)
[2019-10-17] MEDS: NYSTATIN TOPICAL POWDER 15GM BOTTLE. TP SCH ×2 (08:48→21:08)
[2019-10-17] MEDS: PANTOPRAZOLE IV PUSH 40 MG VIAL. IVP SCH (08:48)
--- NOTE | 2019-10-17 08:49 | PDOC ---
SUBJECTIVE ROS Stable, On stable o2 by NC OBJECTIVE Vital Signs Vital Signs Date Time Temp Pulse Resp B/P (MAP) Pulse Ox O2 Delivery O2 Flow Rate FiO2 10/17/19 06:00 74 14 114/60 (78) 95 Room Air 10/17/19 04:00 97.4 97.4 10/17/19 03:15 2.0 I & 0 Intake and Output 10/17/19 07:00 Intake Total 2108.78 ml Output Total 40 ml Balance 2068.78 ml IV Total 2108.78 ml Output Urine Total 40 ml PHYSICAL EXAM Physical Exam GENERAL: NAD, AMS HEENT: Head normocephalic, o2 by NC . NECK: Supple LUNGS: Decreased at bases HEART: RRR, S1, S2 present, ABDOMEN: Soft, NT EXTREMITIES: No cyanosis or edema. 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 Small bilateral pleural effusions. 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 neg Coagulapathy with elevated INR secondary to etoh abuse Elevated Ammonia Alcoholic liver disease - EGD 09/2019 @ [facility] w/ portal hypertension, past imaging w/ fatty liver/?cirrhosis H/o DU requiring IR embolization (2017) - IV PPI therapy EtOH abuse disorder, Severe Morbid obesity, BMI 55 Hx of CHF but preserved Ef last echo 08/07/19 COMMENT/RELEVANT DATA Meds Current Medications Medications (Trade) Dose Ordered Sig/Selene Start Time Stop Time Status Last Admin Dose Admin Albumin Human 200 ml @ 200 mls/hr 1X PRN PRN 10/15/19 16:15 10/15/19 22:14 DC Ceftriaxone Sodium (Rocephin) 1 gm Q24H 10/15/19 12:00 10/16/19 12:13 1 GM Diphenhydramine HCl (Benadryl) 25 mg 1X PRN PRN 10/15/19 16:15 10/16/19 16:14 DC Info (PHARMACY MONITORING -- do not chart) 1 each PRN DAILY PRN 10/16/19 14:00 UNV Lidocaine HCl (Buffered Lidocaine 1%) 6 ml 1X ONCE 10/15/19 14:45 10/15/19 14:58 DC 10/15/19 15:07 4 ML Norepinephrine Bitartrate 8 mg/ Dextrose 258 ml @ 28.27 mls/ hr CONT PRN 10/14/19 21:45 10/16/19 08:40 28.27 MLS/HR Nystatin (Nystop) 1 echo BID 10/15/19 09:00 10/16/19 21:01 1 ECHO Ondansetron HCl (Zofran) 4 mg PRN Q8HRS PRN 10/14/19 13:00 10/15/19 12:59 DC Pantoprazole Sodium (PROTONIX VIAL for IV PUSH) 40 mg DAILYAC 10/14/19 16:30 10/16/19 08:36 40 MG Sodium Chloride 1,000 ml @ 400 mls/hr Q2H30M PRN 10/16/19 14:00 10/16/19 19:00 DC Sodium Chloride (Normal Saline Flush) 10 ml 1X PRN PRN 10/15/19 16:15 10/16/19 16:14 DC Lab Laboratory Tests Test 10/17/19 05:30 White Blood Count 5.6 x10^3/uL (4.0-11.0) Red Blood Count 1.91 x10^6/uL (3.50-5.40) Hemoglobin 6.7 g/dL (12.0-15.5) Hematocrit 19.7 % (36.0-47.0) Mean Corpuscular Volume 103 fL (79-100) Mean Corpuscular Hemoglobin 35 pg (25-35) Mean Corpuscular Hemoglobin Concent 34 g/dL (31-37) Red Cell Distribution Width 19.1 % (11.5-14.5) Platelet Count 16 x10^3/uL (140-400) Prothrombin Time 22.8 SEC (11.7-14.0) Prothromb Time International Ratio 2.0 (0.8-1.1) Sodium Level 139 mmol/L (136-145) Potassium Level 4.1 mmol/L (3.5-5.1) Chloride Level 103 mmol/L (98-107) Carbon Dioxide Level 27 mmol/L (21-32) Anion Gap 9 (6-14) Blood Urea Nitrogen 35 mg/dL (7-20) Creatinine 3.7 mg/dL (0.6-1.0) Estimated GFR (Cockcroft-Gault) 12.3 BUN/Creatinine Ratio 9 (6-20) Glucose Level 93 mg/dL (70-99) Calcium Level 8.3 mg/dL (8.5-10.1) Phosphorus Level 4.7 mg/dL (2.6-4.7) Total Bilirubin 3.7 mg/dL (0.2-1.0) Aspartate Amino Transf (AST/SGOT) 39 U/L (15-37) Alanine Aminotransferase (ALT/SGPT) 33 U/L (14-59) Alkaline Phosphatase 112 U/L (46-116) Total Protein 5.9 g/dL (6.4-8.2) Albumin 3.6 g/dL (3.4-5.0) Albumin/Globulin Ratio 1.6 (1.0-1.7) Results All relevant outside records, renal labs, imaging studies, telemetry/EKG's were reviewed. Justicifation of Admission Dx: Justifications for Admission: Justification of Admission Dx: Yes Altered Mental Status: Altered Mental Status MELISSA MARTINEZ MD Oct 17, 2019 08:49
--- NOTE | 2019-10-17 10:32 | PDOC ---
PROGRESS NOTES Chief Complaint Chief Complaint A/P Acute Encephalopathy secondary to UTI/elevated ammonia. continue abx Hypotension likely due to volume depletion lactate level which is normal. pressor support as needed. 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 transfuse blood today. given 1 units on admission. coagulapathy with elevated INR secondary to etoh abuse Elevated Ammonia. family does not want G tube for lactulose Alcoholic liver disease - EGD 09/2019 @ [facility] w/ portal hypertension, past imaging w/ fatty liver/?cirrhosis. check abdominal US Acute on Chronic Renal Failure secondary to vasomotor nephropapthy seen by Nephro last admission, admission creatine 4.8, baseline 2.5-3. creatine worse. nephro consult and to start HD temporarily H/o DU requiring IR embolization (2016) - IV PPI therapy Debility, weakness consult PT and OT EtOH abuse disorder, very morbid obesity, BMI 55 Severe protein calorie malnutrition Hx of CHF but preserved Ef last echo 08/07/19 dvt ppx: defered given low plt and elevated INR GI and nephro consult DNR and DNI History of Present Illness History of Present Illness continue HD per nephro. family wants to give a few more days before potentially withdrawing care. wean pressors as tolerated. continue IV abx. still not waking much. confused. giving 1 more unit of blood today. Vitals Vitals Vital Signs Date Time Temp Pulse Resp B/P (MAP) Pulse Ox O2 Delivery O2 Flow Rate FiO2 10/17/19 10:01 97.4 72 18 114/51 97.4 10/17/19 10:00 96 Room Air 10/17/19 03:15 2.0 Physical Exam Lungs: Clear Labs LABS Laboratory Tests Test 10/17/19 05:30 White Blood Count 5.6 x10^3/uL (4.0-11.0) Red Blood Count 1.91 x10^6/uL (3.50-5.40) Hemoglobin 6.7 g/dL (12.0-15.5) Hematocrit 19.7 % (36.0-47.0) Mean Corpuscular Volume 103 fL (79-100) Mean Corpuscular Hemoglobin 35 pg (25-35) Mean Corpuscular Hemoglobin Concent 34 g/dL (31-37) Red Cell Distribution Width 19.1 % (11.5-14.5) Platelet Count 16 x10^3/uL (140-400) Prothrombin Time 22.8 SEC (11.7-14.0) Prothromb Time International Ratio 2.0 (0.8-1.1) Sodium Level 139 mmol/L (136-145) Potassium Level 4.1 mmol/L (3.5-5.1) Chloride Level 103 mmol/L (98-107) Carbon Dioxide Level 27 mmol/L (21-32) Anion Gap 9 (6-14) Blood Urea Nitrogen 35 mg/dL (7-20) Creatinine 3.7 mg/dL (0.6-1.0) Estimated GFR (Cockcroft-Gault) 12.3 BUN/Creatinine Ratio 9 (6-20) Glucose Level 93 mg/dL (70-99) Calcium Level 8.3 mg/dL (8.5-10.1) Phosphorus Level 4.7 mg/dL (2.6-4.7) Total Bilirubin 3.7 mg/dL (0.2-1.0) Aspartate Amino Transf (AST/SGOT) 39 U/L (15-37) Alanine Aminotransferase (ALT/SGPT) 33 U/L (14-59) Alkaline Phosphatase 112 U/L (46-116) Total Protein 5.9 g/dL (6.4-8.2) Albumin 3.6 g/dL (3.4-5.0) Albumin/Globulin Ratio 1.6 (1.0-1.7) Assessment and Plan Assessmemt and Plan Problems Medical Problems: (1) AMS (altered mental status) Status: Acute (2) Anemia Status: Acute (3) Hypothermia Status: Acute (4) Liver failure Status: Acute (5) Pulmonary edema Status: Acute (6) UTI (urinary tract infection) Status: Acute Comment Review of Relevant I have reviewed the following items catarina (where applicable) has been applied. Labs Laboratory Tests Test 10/16/19 04:45 10/17/19 05:30 Sodium Level 140 mmol/L (136-145) 139 mmol/L (136-145) Potassium Level 5.2 mmol/L (3.5-5.1) 4.1 mmol/L (3.5-5.1) Chloride Level 105 mmol/L (98-107) 103 mmol/L (98-107) Carbon Dioxide Level 26 mmol/L (21-32) 27 mmol/L (21-32) Anion Gap 9 (6-14) 9 (6-14) Blood Urea Nitrogen 49 mg/dL (7-20) 35 mg/dL (7-20) Creatinine 4.3 mg/dL (0.6-1.0) 3.7 mg/dL (0.6-1.0) Estimated GFR (Cockcroft-Gault) 10.3 12.3 Glucose Level 106 mg/dL (70-99) 93 mg/dL (70-99) Calcium Level 8.3 mg/dL (8.5-10.1) 8.3 mg/dL (8.5-10.1) Phosphorus Level 6.3 mg/dL (2.6-4.7) 4.7 mg/dL (2.6-4.7) Albumin 3.4 g/dL (3.4-5.0) 3.6 g/dL (3.4-5.0) White Blood Count 5.6 x10^3/uL (4.0-11.0) Red Blood Count 1.91 x10^6/uL (3.50-5.40) Hemoglobin 6.7 g/dL (12.0-15.5) Hematocrit 19.7 % (36.0-47.0) Mean Corpuscular Volume 103 fL (79-100) Mean Corpuscular Hemoglobin 35 pg (25-35) Mean Corpuscular Hemoglobin Concent 34 g/dL (31-37) Red Cell Distribution Width 19.1 % (11.5-14.5) Platelet Count 16 x10^3/uL (140-400) Prothrombin Time 22.8 SEC (11.7-14.0) Prothromb Time International Ratio 2.0 (0.8-1.1) BUN/Creatinine Ratio 9 (6-20) Total Bilirubin 3.7 mg/dL (0.2-1.0) Aspartate Amino Transf (AST/SGOT) 39 U/L (15-37) Alanine Aminotransferase (ALT/SGPT) 33 U/L (14-59) Alkaline Phosphatase 112 U/L (46-116) Total Protein 5.9 g/dL (6.4-8.2) Albumin/Globulin Ratio 1.6 (1.0-1.7) Laboratory Tests Test 10/17/19 05:30 White Blood Count 5.6 x10^3/uL (4.0-11.0) Red Blood Count 1.91 x10^6/uL (3.50-5.40) Hemoglobin 6.7 g/dL (12.0-15.5) Hematocrit 19.7 % (36.0-47.0) Mean Corpuscular Volume 103 fL (79-100) Mean Corpuscular Hemoglobin 35 pg (25-35) Mean Corpuscular Hemoglobin Concent 34 g/dL (31-37) Red Cell Distribution Width 19.1 % (11.5-14.5) Platelet Count 16 x10^3/uL (140-400) Prothrombin Time 22.8 SEC (11.7-14.0) Prothromb Time International Ratio 2.0 (0.8-1.1) Sodium Level 139 mmol/L (136-145) Potassium Level 4.1 mmol/L (3.5-5.1) Chloride Level 103 mmol/L (98-107) Carbon Dioxide Level 27 mmol/L (21-32) Anion Gap 9 (6-14) Blood Urea Nitrogen 35 mg/dL (7-20) Creatinine 3.7 mg/dL (0.6-1.0) Estimated GFR (Cockcroft-Gault) 12.3 BUN/Creatinine Ratio 9 (6-20) Glucose Level 93 mg/dL (70-99) Calcium Level 8.3 mg/dL (8.5-10.1) Phosphorus Level 4.7 mg/dL (2.6-4.7) Total Bilirubin 3.7 mg/dL (0.2-1.0) Aspartate Amino Transf (AST/SGOT) 39 U/L (15-37) Alanine Aminotransferase (ALT/SGPT) 33 U/L (14-59) Alkaline Phosphatase 112 U/L (46-116) Total Protein 5.9 g/dL (6.4-8.2) Albumin 3.6 g/dL (3.4-5.0) Albumin/Globulin Ratio 1.6 (1.0-1.7) Microbiology 10/14/19 Blood Culture - Preliminary, Resulted NO GROWTH AFTER 2 DAYS 10/14/19 Urine Culture - Final, Complete Medications Current Medications Ceftriaxone Sodium (Rocephin) 1 gm 1X ONCE IVP Last administered on 10/14/19at 12:07; Start 10/14/19 at 11:45; Stop 10/14/19 at 11:46; Status DC Ondansetron HCl (Zofran) 4 mg PRN Q8HRS PRN IV NAUSEA/VOMITING; Start 10/14/19 at 13:00; Stop 10/15/19 at 12:59; Status DC Pantoprazole Sodium (PROTONIX VIAL for IV PUSH) 40 mg DAILYAC IVP Last administered on 10/17/19at 08:48; Start 10/14/19 at 16:30 Ceftriaxone Sodium (Rocephin) 1 gm Q24H IVP Last administered on 10/16/19at 12:13; Start 10/15/19 at 12:00 Sodium Chloride 1,000 ml @ 500 mls/hr 1X ONCE IV Last administered on 10/14/19at 19:25; Start 10/14/19 at 18:45; Stop 10/14/19 at 20:44; Status DC Sodium Chloride 500 ml @ 500 mls/hr 1X ONCE IV Last administered on 10/14/19at 19:45; Start 10/14/19 at 19:45; Stop 10/14/19 at 20:44; Status DC Albumin Human 100 ml @ 100 mls/hr BID IV Last administered on 10/16/19at 21:00; Start 10/14/19 at 21:00 Norepinephrine Bitartrate 8 mg/ Dextrose 258 ml @ 28.27 mls/ hr CONT PRN IV PER PROTOCOL Last administered on 10/16/19at 08:40; Start 10/14/19 at 21:45 Nystatin (Nystop) 1 jony BID TP Last administered on 10/17/19at 08:48; Start 10/15/19 at 09:00 Sodium Chloride 1,000 ml @ 75 mls/hr [id number] IV Last administered on 10/16/19at 22:23; Start 10/15/19 at 01:00 Lidocaine HCl (Buffered Lidocaine 1%) 6 ml 1X ONCE INJ Last administered on 10/15/19at 15:07; Start 10/15/19 at 14:45; Stop 10/15/19 at 14:58; Status DC Sodium Chloride 1,000 ml @ 1,000 mls/hr Q1H PRN IV hypotension; Start 10/15/19 at 16:06; Stop 10/15/19 at 22:05; Status DC Albumin Human 200 ml @ 200 mls/hr 1X PRN PRN IV Hypotension; Start 10/15/19 at 16:15; Stop 10/15/19 at 22:14; Status DC Diphenhydramine HCl (Benadryl) 25 mg 1X PRN PRN IV ITCHING; Start 10/15/19 at 16:15; Stop 10/16/19 at 16:14; Status DC Diphenhydramine HCl (Benadryl) 25 mg 1X PRN PRN IV ITCHING; Start 10/15/19 at 16:15; Stop 10/16/19 at 16:14; Status DC Sodium Chloride (Normal Saline Flush) 10 ml 1X PRN PRN IV AP catheter pack; Start 10/15/19 at 16:15; Stop 10/16/19 at 16:14; Status DC Sodium Chloride (Normal Saline Flush) 10 ml 1X PRN PRN IV SHIP BOSS catheter pack; Start 10/15/19 at 16:15; Stop 10/16/19 at 16:14; Status DC Sodium Chloride 1,000 ml @ 400 mls/hr Q2H30M PRN IV PATENCY; Start 10/15/19 at 16:06; Stop 10/16/19 at 04:05; Status DC Info (PHARMACY MONITORING -- do not chart) 1 each PRN DAILY PRN MC SEE COMMENTS; Start 10/15/19 at 16:15; Status UNV Info (PHARMACY MONITORING -- do not chart) 1 each PRN DAILY PRN MC SEE COMMENTS; Start 10/15/19 at 16:15 Sodium Chloride 1,000 ml @ 1,000 mls/hr Q1H PRN IV hypotension; Start 10/16/19 at 14:00; Stop 10/16/19 at 19:00; Status DC Sodium Chloride 1,000 ml @ 400 mls/hr Q2H30M PRN IV PATENCY; Start 10/16/19 at 14:00; Stop 10/16/19 at 19:00; Status DC Info (PHARMACY MONITORING -- do not chart) 1 each PRN DAILY PRN MC SEE COMMENTS; Start 10/16/19 at 14:00; Status UNV Active Scripts Active Levothyroxine Sodium 100 Mcg Tablet 100 Mcg PO DAILY06 90 Days Trazodone Hcl 50 Mg Tablet 50 Mg PO QHS [Folic Acid] 1 MG Tablet 1 Mg PO DAILY Nystop (Nystatin) 60 Gm Powder 1 Jony TP BID 7 Days Reported Voltaren (Diclofenac Sodium) 100 Gm Gel..gram. 2 Gm TP BID 30 Days apply to affected area(s) Tylenol (Acetaminophen) 325 Mg Tablet 1 Tab PO PRN DAILY PRN Protonix (Pantoprazole Sodium) 40 Mg Tablet.dr 40 Mg PO DAILYAC [vitamin b1 tablet] 1 Tab PO DAILY Simvastatin 20 Mg Tablet 1 Tab PO QHS Albuterol Sulfate Neb Soln (Albuterol Sulfate) 2.5 Mg/3 Ml Vial.neb 1 Vial NEB PRN Q6HRS PRN Furosemide 20 Mg Tablet 1 Tab PO DAILY Carvedilol (Carvedilol) 3.125 Mg Tablet 3.125 Mg PO BIDWMEALS Aldactone (Spironolactone) 50 Mg Tablet 1 Tab PO DAILY Lactulose 20 Gm/30 Ml Solution 20 Gm PO TID Xifaxan (Rifaximin) 550 Mg Tablet 1 Tab PO BID 10 Days [Vitamin B12 Injectio] 1,000 Mcg IM QTU 21 Days Citalopram Hbr (Citalopram Hydrobromide) 40 Mg Tablet 10 Mg PO DAILY Vitals/I & O Vital Sign - Last 24 Hours 10/16/19 10/16/19 10/16/19 10/16/19 11:00 12:00 12:00 13:00 Temp 97.8 97.8 Pulse 80 78 78 Resp 12 12 12 B/P (MAP) 124/57 (79) 137/59 (85) 119/53 (75) Pulse Ox 97 100 100 O2 Delivery Nasal Cannula Nasal Cannula Nasal Cannula Nasal Cannula O2 Flow Rate 4.0 2.0 2.0 2.0 10/16/19 10/16/19 10/16/19 10/16/19 14:00 15:00 16:00 16:00 Temp 97.7 97.7 Pulse 80 78 82 Resp 12 12 12 B/P (MAP) 114/45 (68) 113/45 (67) 167/70 (102) Pulse Ox 100 99 97 O2 Delivery Nasal Cannula Nasal Cannula Nasal Cannula Nasal Cannula O2 Flow Rate 2.0 2.0 2.0 2.0 10/16/19 10/16/19 10/16/19 10/16/19 17:00 18:00 19:00 20:00 Pulse 86 86 80 Resp 12 12 20 B/P (MAP) 120/50 (73) 135/50 (78) 107/47 (67) Pulse Ox 97 98 100 O2 Delivery Nasal Cannula Nasal Cannula Nasal Cannula Nasal Cannula O2 Flow Rate 2.0 2.0 2.0 2.0 10/16/19 10/16/19 10/16/19 10/16/19 20:00 21:00 22:00 23:00 Temp 97.5 97.5 Pulse 76 77 76 77 Resp 18 15 12 12 B/P (MAP) 101/48 (65) 116/49 (71) 116/54 (74) 111/49 (69) Pulse Ox 98 100 98 98 O2 Delivery Nasal Cannula Nasal Cannula Nasal Cannula Nasal Cannula O2 Flow Rate 2.0 2.0 2.0 2.0 10/17/19 10/17/19 10/17/19 10/17/19 00:00 00:00 01:00 01:26 Temp 97.4 97.4 Pulse 77 76 76 Resp 26 20 33 B/P (MAP) 104/46 (65) 85/44 (58) 73/41 (52) Pulse Ox 96 99 99 O2 Delivery Nasal Cannula Nasal Cannula Nasal Cannula O2 Flow Rate 2.0 2.0 2.0 2.0 10/17/19 10/17/19 10/17/19 10/17/19 01:45 02:00 02:15 03:00 Pulse 80 74 74 71 Resp 30 19 24 26 B/P (MAP) 124/58 (80) 80/45 (57) 102/43 (62) 81/49 (60) Pulse Ox 98 98 99 97 O2 Flow Rate 2.0 2.0 2.0 2.0 10/17/19 10/17/19 10/17/19 10/17/19 03:15 04:00 04:00 05:00 Temp 97.4 97.4 Pulse 75 76 74 Resp 28 27 20 B/P (MAP) 104/54 (71) 103/41 (61) 101/48 (65) Pulse Ox 94 97 93 O2 Delivery Room Air Room Air Room Air O2 Flow Rate 2.0 10/17/19 10/17/19 10/17/19 10/17/19 06:00 07:00 08:00 08:00 Temp 97.6 97.6 Pulse 74 75 72 Resp 14 24 26 B/P (MAP) 114/60 (78) 104/53 (70) 107/51 (69) Pulse Ox 95 95 95 O2 Delivery Room Air Room Air Room Air Room Air 10/17/19 10/17/19 10/17/19 10/17/19 09:00 09:10 09:21 10:00 Temp 97.5 97.4 97.5 97.4 Pulse 75 74 77 77 Resp 24 24 22 20 B/P (MAP) 103/54 (70) 103/54 112/48 101/51 (68) Pulse Ox 95 96 O2 Delivery Room Air Room Air 10/17/19 10:01 Temp 97.4 97.4 Pulse 72 Resp 18 B/P (MAP) 114/51 Intake and Output 10/16/19 10/16/19 10/17/19 15:00 23:00 07:00 Intake Total 100 ml 1126.78 ml 882 ml Output Total 15 ml 10 ml 15 ml Balance 85 ml 1116.78 ml 867 ml Justicifation of Admission Dx: Justifications for Admission: Justification of Admission Dx: Yes Altered Mental Status: Altered Mental Status TJ JAIMES MD Oct 17, 2019 10:32
[2019-10-17] MEDS: NOREPINEPHRINE VIAL 8 MG in IV DEXTROSE 5% 250 ML IV PRN (10:51)
[2019-10-17] MEDS: ALBUMIN HUMAN 25% 100 ML IV SCH ×2 (10:51→21:08)
[2019-10-17] MEDS: cefTRIAXone IV Push 1 GM VIAL. IVP SCH (12:33)
--- NOTE | 2019-10-17 12:42 | PDOC ---
Objective: Objective: D/w nurse - some discussion of possible NG placement. Vital Signs: Vital Signs Date Time Temp Pulse Resp B/P (MAP) Pulse Ox O2 Delivery O2 Flow Rate FiO2 10/17/19 11:03 77 22 111/42 (65) 96 Room Air 10/17/19 11:01 97.4 97.4 10/17/19 03:15 2.0 Labs: Laboratory Tests Test 10/17/19 05:30 10/17/19 10:05 White Blood Count 5.6 x10^3/uL Red Blood Count 1.91 x10^6/uL Hemoglobin 6.7 g/dL Hematocrit 19.7 % Mean Corpuscular Volume 103 fL Mean Corpuscular Hemoglobin 35 pg Mean Corpuscular Hemoglobin Concent 34 g/dL Red Cell Distribution Width 19.1 % Platelet Count 16 x10^3/uL Prothrombin Time 22.8 SEC Prothromb Time International Ratio 2.0 Sodium Level 139 mmol/L Potassium Level 4.1 mmol/L Chloride Level 103 mmol/L Carbon Dioxide Level 27 mmol/L Anion Gap 9 Blood Urea Nitrogen 35 mg/dL Creatinine 3.7 mg/dL Estimated GFR (Cockcroft-Gault) 12.3 BUN/Creatinine Ratio 9 Glucose Level 93 mg/dL Calcium Level 8.3 mg/dL Phosphorus Level 4.7 mg/dL Total Bilirubin 3.7 mg/dL Aspartate Amino Transf (AST/SGOT) 39 U/L Alanine Aminotransferase (ALT/SGPT) 33 U/L Alkaline Phosphatase 112 U/L Total Protein 5.9 g/dL Albumin 3.6 g/dL Albumin/Globulin Ratio 1.6 Ammonia 45 mcmol/L URINE CULTURE Final Final Three or more organisms isolated. Results consistent with colonization or contamination during the collection process. Recollection recommended using a method to minimize contamination. PE: GEN: NAD LUNGS: CTAB HEART: RRR ABD: soft, non-tender NEURO/PSYCH: mumbles when I say her name A/P: Encephalopathy, UTI H/o CHF, CKD (on HD) Chronic macrocytic anemia - Hgb drifting, another transfusion ordered, no obvious bleeding Thrombocytopenia - worse Alcoholic liver disease - mildly elevated ammonia (stable) H/o DU - no PUD on recent EGD @ [facility] COVID-19 negative -- ?reculture urine Justicifation of Admission Dx: Justifications for Admission: Justification of Admission Dx: Yes Altered Mental Status: Altered Mental Status BLAKE HOPKINS Oct 17, 2019 12:42
--- NOTE | 2019-10-17 13:34 | NUR ---
SS following up with discharge planning. SS reviewed pt chart and discussed with pt RN. Pt currently on room air. COVID19 negative. Pt on IV Rocephin and having temporary hemodialysis. Pt will need PT/OT ordered when appropriate. SS will continue to follow for discharge planning.
[2019-10-17] MEDS: IV NORMAL SALINE 1000ML BAG 1,000 ML IV SCH (23:51)
[2019-10-18] VITALS (24 sets, daily range): BP systolic 90–170; BP diastolic 38–78
[2019-10-18 05:38] LABS: CALCIUM 8.5 mg/dL (8.5-10.1); CREATININE 4.3 mg/dL (0.6-1.0); GFR 10.3; POTASSIUM 4.2 mmol/L (3.5-5.1)
[2019-10-18 05:49] LABS: BASO % 1 % (0-3); EOS # 0.1 x10^3/uL (0.0-0.7); EOS % 2 % (0-3); HEMATOCRIT 21.1 % (36.0-47.0); HEMOGLOBIN 7.1 g/dL (12.0-15.5); LYMPH # 1.3 x10^3/uL (1.0-4.8); LYMPH % 27 % (24-48); MEAN CORPUSCULAR HEMOGLOBIN 34 pg (25-35); MEAN CORPUSCULAR HGB CONC 34 g/dL (31-37); MEAN CORPUSCULAR VOLUME 101 fL (79-100); MONO # 0.3 x10^3/uL (0.0-1.1); MONO % 6 % (0-9); NEUT # 3.2 x10^3/uL (1.8-7.7); NEUT % 64 % (31-73); RED BLOOD COUNT 2.08 x10^6/uL (3.50-5.40)
[2019-10-18 05:53] LABS: PLATELET COUNT 19 x10^3/uL (140-400)
[2019-10-18] MEDS: NOREPINEPHRINE VIAL 8 MG in IV DEXTROSE 5% 250 ML IV PRN (07:19)
[2019-10-18] MEDS: PANTOPRAZOLE IV PUSH 40 MG VIAL. IVP SCH ×2 (07:38→20:50)
[2019-10-18] MEDS: ALBUMIN HUMAN 25% 100 ML IV SCH ×2 (09:46→20:50)
[2019-10-18] MEDS: IV NORMAL SALINE 1000ML BAG 1,000 ML IV SCH ×2 (09:47→23:18)
[2019-10-18] MEDS: NYSTATIN TOPICAL POWDER 15GM BOTTLE. TP SCH ×2 (09:47→20:50)
--- NOTE | 2019-10-18 09:52 | PDOC ---
PROGRESS NOTES Chief Complaint Chief Complaint A/P Acute Encephalopathy secondary to UTI/elevated ammonia. continue abx Hypotension likely due to volume depletion lactate level which is normal. pressor support as needed. 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 transfuse blood today. given 1 units on admission. coagulapathy with elevated INR secondary to etoh abuse Elevated Ammonia. family does not want G tube for lactulose Alcoholic liver disease - EGD 09/2019 @ [facility] w/ portal hypertension, past imaging w/ fatty liver/?cirrhosis. check abdominal US Acute on Chronic Renal Failure secondary to vasomotor nephropapthy seen by Nephro last admission, admission creatine 4.8, baseline 2.5-3. creatine worse. nephro consult and to start HD temporarily H/o DU requiring IR embolization (2016) - IV PPI therapy Debility, weakness consult PT and OT EtOH abuse disorder, very morbid obesity, BMI 55 Severe protein calorie malnutrition Hx of CHF but preserved Ef last echo 08/07/19 dvt ppx: defered given low plt and elevated INR GI and nephro consult DNR and DNI History of Present Illness History of Present Illness continue HD per nephro. spoke with sister rubio and updated her on plan of care. they are considering hospice but still want time to consider. she will come today to see her sister. jude pressors as tolerated. continue IV abx. slight more alert today but still confused and lethargic. Hb 7.1 today. labs in AM Vitals Vitals Vital Signs Date Time Temp Pulse Resp B/P (MAP) Pulse Ox O2 Delivery O2 Flow Rate FiO2 10/18/19 08:00 Nasal Cannula 2.0 10/18/19 08:00 97.2 72 19 131/54 (79) 95 97.2 Physical Exam General: Other (confused) Heart: Regular rate, Normal S1 Lungs: Clear Abdomen: Normal bowel sounds Extremities: No clubbing Labs LABS Laboratory Tests Test 10/17/19 10:05 10/18/19 04:50 Ammonia 45 mcmol/L (11-34) White Blood Count 5.0 x10^3/uL (4.0-11.0) Red Blood Count 2.08 x10^6/uL (3.50-5.40) Hemoglobin 7.1 g/dL (12.0-15.5) Hematocrit 21.1 % (36.0-47.0) Mean Corpuscular Volume 101 fL (79-100) Mean Corpuscular Hemoglobin 34 pg (25-35) Mean Corpuscular Hemoglobin Concent 34 g/dL (31-37) Red Cell Distribution Width 21.0 % (11.5-14.5) Platelet Count 19 x10^3/uL (140-400) Neutrophils (%) (Auto) 64 % (31-73) Lymphocytes (%) (Auto) 27 % (24-48) Monocytes (%) (Auto) 6 % (0-9) Eosinophils (%) (Auto) 2 % (0-3) Basophils (%) (Auto) 1 % (0-3) Neutrophils # (Auto) 3.2 x10^3/uL (1.8-7.7) Lymphocytes # (Auto) 1.3 x10^3/uL (1.0-4.8) Monocytes # (Auto) 0.3 x10^3/uL (0.0-1.1) Eosinophils # (Auto) 0.1 x10^3/uL (0.0-0.7) Basophils # (Auto) 0.0 x10^3/uL (0.0-0.2) Sodium Level 138 mmol/L (136-145) Potassium Level 4.2 mmol/L (3.5-5.1) Chloride Level 103 mmol/L (98-107) Carbon Dioxide Level 29 mmol/L (21-32) Anion Gap 6 (6-14) Blood Urea Nitrogen 41 mg/dL (7-20) Creatinine 4.3 mg/dL (0.6-1.0) Estimated GFR (Cockcroft-Gault) 10.3 Glucose Level 94 mg/dL (70-99) Calcium Level 8.5 mg/dL (8.5-10.1) Assessment and Plan Assessmemt and Plan Problems Medical Problems: (1) AMS (altered mental status) Status: Acute (2) Anemia Status: Acute (3) Hypothermia Status: Acute (4) Liver failure Status: Acute (5) Pulmonary edema Status: Acute (6) UTI (urinary tract infection) Status: Acute Comment Review of Relevant I have reviewed the following items catarina (where applicable) has been applied. Labs Laboratory Tests Test 10/17/19 05:30 10/17/19 10:05 10/18/19 04:50 White Blood Count 5.6 x10^3/uL (4.0-11.0) 5.0 x10^3/uL (4.0-11.0) Red Blood Count 1.91 x10^6/uL (3.50-5.40) 2.08 x10^6/uL (3.50-5.40) Hemoglobin 6.7 g/dL (12.0-15.5) 7.1 g/dL (12.0-15.5) Hematocrit 19.7 % (36.0-47.0) 21.1 % (36.0-47.0) Mean Corpuscular Volume 103 fL (79-100) 101 fL (79-100) Mean Corpuscular Hemoglobin 35 pg (25-35) 34 pg (25-35) Mean Corpuscular Hemoglobin Concent 34 g/dL (31-37) 34 g/dL (31-37) Red Cell Distribution Width 19.1 % (11.5-14.5) 21.0 % (11.5-14.5) Platelet Count 16 x10^3/uL (140-400) 19 x10^3/uL (140-400) Prothrombin Time 22.8 SEC (11.7-14.0) Prothromb Time International Ratio 2.0 (0.8-1.1) Sodium Level 139 mmol/L (136-145) 138 mmol/L (136-145) Potassium Level 4.1 mmol/L (3.5-5.1) 4.2 mmol/L (3.5-5.1) Chloride Level 103 mmol/L (98-107) 103 mmol/L (98-107) Carbon Dioxide Level 27 mmol/L (21-32) 29 mmol/L (21-32) Anion Gap 9 (6-14) 6 (6-14) Blood Urea Nitrogen 35 mg/dL (7-20) 41 mg/dL (7-20) Creatinine 3.7 mg/dL (0.6-1.0) 4.3 mg/dL (0.6-1.0) Estimated GFR (Cockcroft-Gault) 12.3 10.3 BUN/Creatinine Ratio 9 (6-20) Glucose Level 93 mg/dL (70-99) 94 mg/dL (70-99) Calcium Level 8.3 mg/dL (8.5-10.1) 8.5 mg/dL (8.5-10.1) Phosphorus Level 4.7 mg/dL (2.6-4.7) Total Bilirubin 3.7 mg/dL (0.2-1.0) Aspartate Amino Transf (AST/SGOT) 39 U/L (15-37) Alanine Aminotransferase (ALT/SGPT) 33 U/L (14-59) Alkaline Phosphatase 112 U/L (46-116) Total Protein 5.9 g/dL (6.4-8.2) Albumin 3.6 g/dL (3.4-5.0) Albumin/Globulin Ratio 1.6 (1.0-1.7) Ammonia 45 mcmol/L (11-34) Neutrophils (%) (Auto) 64 % (31-73) Lymphocytes (%) (Auto) 27 % (24-48) Monocytes (%) (Auto) 6 % (0-9) Eosinophils (%) (Auto) 2 % (0-3) Basophils (%) (Auto) 1 % (0-3) Neutrophils # (Auto) 3.2 x10^3/uL (1.8-7.7) Lymphocytes # (Auto) 1.3 x10^3/uL (1.0-4.8) Monocytes # (Auto) 0.3 x10^3/uL (0.0-1.1) Eosinophils # (Auto) 0.1 x10^3/uL (0.0-0.7) Basophils # (Auto) 0.0 x10^3/uL (0.0-0.2) Laboratory Tests Test 10/17/19 10:05 10/18/19 04:50 Ammonia 45 mcmol/L (11-34) White Blood Count 5.0 x10^3/uL (4.0-11.0) Red Blood Count 2.08 x10^6/uL (3.50-5.40) Hemoglobin 7.1 g/dL (12.0-15.5) Hematocrit 21.1 % (36.0-47.0) Mean Corpuscular Volume 101 fL (79-100) Mean Corpuscular Hemoglobin 34 pg (25-35) Mean Corpuscular Hemoglobin Concent 34 g/dL (31-37) Red Cell Distribution Width 21.0 % (11.5-14.5) Platelet Count 19 x10^3/uL (140-400) Neutrophils (%) (Auto) 64 % (31-73) Lymphocytes (%) (Auto) 27 % (24-48) Monocytes (%) (Auto) 6 % (0-9) Eosinophils (%) (Auto) 2 % (0-3) Basophils (%) (Auto) 1 % (0-3) Neutrophils # (Auto) 3.2 x10^3/uL (1.8-7.7) Lymphocytes # (Auto) 1.3 x10^3/uL (1.0-4.8) Monocytes # (Auto) 0.3 x10^3/uL (0.0-1.1) Eosinophils # (Auto) 0.1 x10^3/uL (0.0-0.7) Basophils # (Auto) 0.0 x10^3/uL (0.0-0.2) Sodium Level 138 mmol/L (136-145) Potassium Level 4.2 mmol/L (3.5-5.1) Chloride Level 103 mmol/L (98-107) Carbon Dioxide Level 29 mmol/L (21-32) Anion Gap 6 (6-14) Blood Urea Nitrogen 41 mg/dL (7-20) Creatinine 4.3 mg/dL (0.6-1.0) Estimated GFR (Cockcroft-Gault) 10.3 Glucose Level 94 mg/dL (70-99) Calcium Level 8.5 mg/dL (8.5-10.1) Microbiology 10/14/19 Blood Culture - Preliminary, Resulted NO GROWTH AFTER 3 DAYS 10/14/19 Urine Culture - Final, Complete Medications Current Medications Ceftriaxone Sodium (Rocephin) 1 gm 1X ONCE IVP Last administered on 10/14/19at 12:07; Start 10/14/19 at 11:45; Stop 10/14/19 at 11:46; Status DC Ondansetron HCl (Zofran) 4 mg PRN Q8HRS PRN IV NAUSEA/VOMITING; Start 10/14/19 at 13:00; Stop 10/15/19 at 12:59; Status DC Pantoprazole Sodium (PROTONIX VIAL for IV PUSH) 40 mg DAILYAC IVP Last administered on 10/18/19at 07:38; Start 10/14/19 at 16:30 Ceftriaxone Sodium (Rocephin) 1 gm Q24H IVP Last administered on 10/17/19at 12:33; Start 10/15/19 at 12:00 Sodium Chloride 1,000 ml @ 500 mls/hr 1X ONCE IV Last administered on 10/14/19at 19:25; Start 10/14/19 at 18:45; Stop 10/14/19 at 20:44; Status DC Sodium Chloride 500 ml @ 500 mls/hr 1X ONCE IV Last administered on 10/14/19at 19:45; Start 10/14/19 at 19:45; Stop 10/14/19 at 20:44; Status DC Albumin Human 100 ml @ 100 mls/hr BID IV Last administered on 10/18/19at 09:46; Start 10/14/19 at 21:00 Norepinephrine Bitartrate 8 mg/ Dextrose 258 ml @ 28.27 mls/ hr CONT PRN IV PER PROTOCOL Last administered on 10/18/19at 07:19; Start 10/14/19 at 21:45 Nystatin (Nystop) 1 jony BID TP Last administered on 10/18/19at 09:47; Start 10/15/19 at 09:00 Sodium Chloride 1,000 ml @ 75 mls/hr [id number] IV Last administered on 10/18/19at 09:47; Start 10/15/19 at 01:00 Lidocaine HCl (Buffered Lidocaine 1%) 6 ml 1X ONCE INJ Last administered on 10/15/19at 15:07; Start 10/15/19 at 14:45; Stop 10/15/19 at 14:58; Status DC Sodium Chloride 1,000 ml @ 1,000 mls/hr Q1H PRN IV hypotension; Start 10/15/19 at 16:06; Stop 10/15/19 at 22:05; Status DC Albumin Human 200 ml @ 200 mls/hr 1X PRN PRN IV Hypotension; Start 10/15/19 at 16:15; Stop 10/15/19 at 22:14; Status DC Diphenhydramine HCl (Benadryl) 25 mg 1X PRN PRN IV ITCHING; Start 10/15/19 at 16:15; Stop 10/16/19 at 16:14; Status DC Diphenhydramine HCl (Benadryl) 25 mg 1X PRN PRN IV ITCHING; Start 10/15/19 at 16:15; Stop 10/16/19 at 16:14; Status DC Sodium Chloride (Normal Saline Flush) 10 ml 1X PRN PRN IV AP catheter pack; Start 10/15/19 at 16:15; Stop 10/16/19 at 16:14; Status DC Sodium Chloride (Normal Saline Flush) 10 ml 1X PRN PRN IV [employer] catheter pack; Start 10/15/19 at 16:15; Stop 10/16/19 at 16:14; Status DC Sodium Chloride 1,000 ml @ 400 mls/hr Q2H30M PRN IV PATENCY; Start 10/15/19 at 16:06; Stop 10/16/19 at 04:05; Status DC Info (PHARMACY MONITORING -- do not chart) 1 each PRN DAILY PRN MC SEE COMMENTS; Start 10/15/19 at 16:15; Status UNV Info (PHARMACY MONITORING -- do not chart) 1 each PRN DAILY PRN MC SEE COMMENTS; Start 10/15/19 at 16:15 Sodium Chloride 1,000 ml @ 1,000 mls/hr Q1H PRN IV hypotension; Start 10/16/19 at 14:00; Stop 10/16/19 at 19:00; Status DC Sodium Chloride 1,000 ml @ 400 mls/hr Q2H30M PRN IV PATENCY; Start 10/16/19 at 14:00; Stop 10/16/19 at 19:00; Status DC Info (PHARMACY MONITORING -- do not chart) 1 each PRN DAILY PRN MC SEE COMMENTS; Start 10/16/19 at 14:00; Status UNV Active Scripts Active Levothyroxine Sodium 100 Mcg Tablet 100 Mcg PO DAILY06 90 Days Trazodone Hcl 50 Mg Tablet 50 Mg PO QHS [Folic Acid] 1 MG Tablet 1 Mg PO DAILY Nystop (Nystatin) 60 Gm Powder 1 Jony TP BID 7 Days Reported Voltaren (Diclofenac Sodium) 100 Gm Gel..gram. 2 Gm TP BID 30 Days apply to affected area(s) Tylenol (Acetaminophen) 325 Mg Tablet 1 Tab PO PRN DAILY PRN Protonix (Pantoprazole Sodium) 40 Mg Tablet.dr 40 Mg PO DAILYAC [vitamin b1 tablet] 1 Tab PO DAILY Simvastatin 20 Mg Tablet 1 Tab PO QHS Albuterol Sulfate Neb Soln (Albuterol Sulfate) 2.5 Mg/3 Ml Vial.neb 1 Vial NEB PRN Q6HRS PRN Furosemide 20 Mg Tablet 1 Tab PO DAILY Carvedilol (Carvedilol) 3.125 Mg Tablet 3.125 Mg PO BIDWMEALS Aldactone (Spironolactone) 50 Mg Tablet 1 Tab PO DAILY Lactulose 20 Gm/30 Ml Solution 20 Gm PO TID Xifaxan (Rifaximin) 550 Mg Tablet 1 Tab PO BID 10 Days [Vitamin B12 Injectio] 1,000 Mcg IM QTU 21 Days Citalopram Hbr (Citalopram Hydrobromide) 40 Mg Tablet 10 Mg PO DAILY Vitals/I & O Vital Sign - Last 24 Hours 10/17/19 10/17/19 10/17/19 10/17/19 10:00 10:01 10:36 10:49 Temp 97.4 97.4 Pulse 77 72 69 71 Resp 20 18 20 22 B/P (MAP) 101/51 (68) 114/51 113/56 111/42 Pulse Ox 96 O2 Delivery Room Air 10/17/19 10/17/19 10/17/19 10/17/19 11:01 11:03 12:00 12:00 Temp 97.4 97.4 97.4 97.4 Pulse 77 77 78 Resp 22 22 23 B/P (MAP) 111/42 111/42 (65) 113/52 (72) Pulse Ox 96 96 O2 Delivery Room Air Room Air Room Air 10/17/19 10/17/19 10/17/19 10/17/19 13:00 14:07 15:00 16:00 Pulse 53 75 73 Resp 20 18 28 B/P (MAP) 116/51 (72) 104/51 (68) 133/50 (77) Pulse Ox 96 96 97 O2 Delivery Nasal Cannula Nasal Cannula Nasal Cannula Room Air O2 Flow Rate 2.0 2.0 2.0 10/17/19 10/17/19 10/17/19 10/17/19 16:00 17:00 18:00 19:00 Temp 97.4 97.4 97.4 97.4 Pulse 69 73 73 72 Resp 26 26 20 21 B/P (MAP) 109/56 (73) 127/54 (78) 127/58 (81) 121/52 (75) Pulse Ox 97 98 97 97 O2 Delivery Nasal Cannula Nasal Cannula Nasal Cannula Nasal Cannula O2 Flow Rate 2.0 2.0 2.0 2.0 10/17/19 10/17/19 10/17/19 10/17/19 20:00 20:00 21:00 22:00 Pulse 72 70 70 Resp 19 25 19 B/P (MAP) 155/79 (104) 141/72 (95) 148/63 (91) Pulse Ox 98 98 98 O2 Delivery Nasal Cannula Room Air Nasal Cannula Nasal Cannula O2 Flow Rate 2.0 2.0 2.0 2.0 10/17/19 10/17/19 10/18/19 10/18/19 23:00 23:59 00:00 01:00 Temp 97.3 97.3 Pulse 64 74 76 Resp 11 18 19 B/P (MAP) 152/71 (98) 114/75 (88) 142/67 (92) Pulse Ox 97 97 98 O2 Delivery Nasal Cannula Nasal Cannula Nasal Cannula Nasal Cannula O2 Flow Rate 2.0 2.0 2.0 2.0 10/18/19 10/18/19 10/18/19 10/18/19 01:00 02:00 03:00 04:00 Pulse 74 74 Resp 19 17 B/P (MAP) 140/68 (92) 153/71 (98) 133/71 (91) Pulse Ox 98 97 O2 Delivery Nasal Cannula Nasal Cannula Nasal Cannula O2 Flow Rate 2.0 2.0 2.0 10/18/19 10/18/19 10/18/19 10/18/19 04:00 05:00 06:00 07:00 Temp 97.4 97.4 Pulse 72 72 72 74 Resp 12 17 20 18 B/P (MAP) 152/58 (89) 133/73 (93) 141/57 (85) 142/62 (88) Pulse Ox 96 96 96 O2 Delivery Nasal Cannula Nasal Cannula Nasal Cannula O2 Flow Rate 2.0 2.0 2.0 10/18/19 10/18/19 08:00 08:00 Temp 97.2 97.2 Pulse 72 Resp 19 B/P (MAP) 131/54 (79) Pulse Ox 95 O2 Delivery Nasal Cannula Nasal Cannula O2 Flow Rate 2.0 2.0 Intake and Output 10/17/19 10/17/19 10/18/19 15:00 23:00 07:00 Intake Total 900 ml 1178.26 ml 0 ml Output Total 0 ml 0 ml 50 ml Balance 900 ml 1178.26 ml -50 ml Justicifation of Admission Dx: Justifications for Admission: Justification of Admission Dx: Yes Altered Mental Status: Altered Mental Status TJ JAIMES MD Oct 18, 2019 09:52
[2019-10-18] MEDS ORDERED: IV NORMAL SALINE 1000ML BAG 1,000 ML IV PRN ×2 (11:31)
[2019-10-18] MEDS ORDERED: ALBUMIN HUMAN 25% 200 ML IV PRN (11:45)
[2019-10-18] MEDS ORDERED: DIALYSIS PATIENT. MC PRN ×2 (11:45)
[2019-10-18] MEDS: cefTRIAXone IV Push 1 GM VIAL. IVP SCH (11:58)
--- NOTE | 2019-10-18 13:16 | PDOC ---
PROGRESS NOTES Subjective Subjective SEEN IN FOLLOW UP OF ARF/CKD Objective Objective Vital Signs Date Time Temp Pulse Resp B/P (MAP) Pulse Ox O2 Delivery O2 Flow Rate FiO2 10/18/19 12:00 Nasal Cannula 2.0 10/18/19 12:00 97.0 77 20 129/62 (84) 94 97.0 Intake and Output 10/18/19 07:00 Intake Total 2078.26 ml Output Total 50 ml Balance 2028.26 ml Intake Oral 0 ml IV Total 1278.26 ml Blood Product 350 ml Blood Product IV Normal Saline Flush 450 ml Output Urine Total 50 ml Physical Exam Abdomen: Other (DISTENDED) Heart: Other (ANASARCA) General: Other (SOMNULENT) Lungs: Clear to auscultation, Normal air movement Psych/Mental Status: Other (CONFUSED) Diagnosis RENAL FAILURE: Acute (Acute tubular necrosis) Other LIVER FAILURE Assessment Assessment Problems Medical Problems: (1) AMS (altered mental status) Status: Acute (2) Anemia Status: Acute (3) Hypothermia Status: Acute (4) Liver failure Status: Acute (5) Pulmonary edema Status: Acute (6) UTI (urinary tract infection) Status: Acute Comment Review of Relevant I have reviewed the following items catarina (where applicable) has been applied. Labs Laboratory Tests Test 10/17/19 05:30 10/17/19 10:05 10/18/19 04:50 White Blood Count 5.6 x10^3/uL (4.0-11.0) 5.0 x10^3/uL (4.0-11.0) Red Blood Count 1.91 x10^6/uL (3.50-5.40) 2.08 x10^6/uL (3.50-5.40) Hemoglobin 6.7 g/dL (12.0-15.5) 7.1 g/dL (12.0-15.5) Hematocrit 19.7 % (36.0-47.0) 21.1 % (36.0-47.0) Mean Corpuscular Volume 103 fL (79-100) 101 fL (79-100) Mean Corpuscular Hemoglobin 35 pg (25-35) 34 pg (25-35) Mean Corpuscular Hemoglobin Concent 34 g/dL (31-37) 34 g/dL (31-37) Red Cell Distribution Width 19.1 % (11.5-14.5) 21.0 % (11.5-14.5) Platelet Count 16 x10^3/uL (140-400) 19 x10^3/uL (140-400) Prothrombin Time 22.8 SEC (11.7-14.0) Prothromb Time International Ratio 2.0 (0.8-1.1) Sodium Level 139 mmol/L (136-145) 138 mmol/L (136-145) Potassium Level 4.1 mmol/L (3.5-5.1) 4.2 mmol/L (3.5-5.1) Chloride Level 103 mmol/L (98-107) 103 mmol/L (98-107) Carbon Dioxide Level 27 mmol/L (21-32) 29 mmol/L (21-32) Anion Gap 9 (6-14) 6 (6-14) Blood Urea Nitrogen 35 mg/dL (7-20) 41 mg/dL (7-20) Creatinine 3.7 mg/dL (0.6-1.0) 4.3 mg/dL (0.6-1.0) Estimated GFR (Cockcroft-Gault) 12.3 10.3 BUN/Creatinine Ratio 9 (6-20) Glucose Level 93 mg/dL (70-99) 94 mg/dL (70-99) Calcium Level 8.3 mg/dL (8.5-10.1) 8.5 mg/dL (8.5-10.1) Phosphorus Level 4.7 mg/dL (2.6-4.7) Total Bilirubin 3.7 mg/dL (0.2-1.0) Aspartate Amino Transf (AST/SGOT) 39 U/L (15-37) Alanine Aminotransferase (ALT/SGPT) 33 U/L (14-59) Alkaline Phosphatase 112 U/L (46-116) Total Protein 5.9 g/dL (6.4-8.2) Albumin 3.6 g/dL (3.4-5.0) Albumin/Globulin Ratio 1.6 (1.0-1.7) Ammonia 45 mcmol/L (11-34) Neutrophils (%) (Auto) 64 % (31-73) Lymphocytes (%) (Auto) 27 % (24-48) Monocytes (%) (Auto) 6 % (0-9) Eosinophils (%) (Auto) 2 % (0-3) Basophils (%) (Auto) 1 % (0-3) Neutrophils # (Auto) 3.2 x10^3/uL (1.8-7.7) Lymphocytes # (Auto) 1.3 x10^3/uL (1.0-4.8) Monocytes # (Auto) 0.3 x10^3/uL (0.0-1.1) Eosinophils # (Auto) 0.1 x10^3/uL (0.0-0.7) Basophils # (Auto) 0.0 x10^3/uL (0.0-0.2) Laboratory Tests Test 10/18/19 04:50 White Blood Count 5.0 x10^3/uL (4.0-11.0) Red Blood Count 2.08 x10^6/uL (3.50-5.40) Hemoglobin 7.1 g/dL (12.0-15.5) Hematocrit 21.1 % (36.0-47.0) Mean Corpuscular Volume 101 fL (79-100) Mean Corpuscular Hemoglobin 34 pg (25-35) Mean Corpuscular Hemoglobin Concent 34 g/dL (31-37) Red Cell Distribution Width 21.0 % (11.5-14.5) Platelet Count 19 x10^3/uL (140-400) Neutrophils (%) (Auto) 64 % (31-73) Lymphocytes (%) (Auto) 27 % (24-48) Monocytes (%) (Auto) 6 % (0-9) Eosinophils (%) (Auto) 2 % (0-3) Basophils (%) (Auto) 1 % (0-3) Neutrophils # (Auto) 3.2 x10^3/uL (1.8-7.7) Lymphocytes # (Auto) 1.3 x10^3/uL (1.0-4.8) Monocytes # (Auto) 0.3 x10^3/uL (0.0-1.1) Eosinophils # (Auto) 0.1 x10^3/uL (0.0-0.7) Basophils # (Auto) 0.0 x10^3/uL (0.0-0.2) Sodium Level 138 mmol/L (136-145) Potassium Level 4.2 mmol/L (3.5-5.1) Chloride Level 103 mmol/L (98-107) Carbon Dioxide Level 29 mmol/L (21-32) Anion Gap 6 (6-14) Blood Urea Nitrogen 41 mg/dL (7-20) Creatinine 4.3 mg/dL (0.6-1.0) Estimated GFR (Cockcroft-Gault) 10.3 Glucose Level 94 mg/dL (70-99) Calcium Level 8.5 mg/dL (8.5-10.1) Microbiology 10/14/19 Blood Culture - Preliminary, Resulted NO GROWTH AFTER 4 DAYS 10/14/19 Urine Culture - Final, Complete Medications Current Medications Ceftriaxone Sodium (Rocephin) 1 gm 1X ONCE IVP Last administered on 10/14/19at 12:07; Start 10/14/19 at 11:45; Stop 10/14/19 at 11:46; Status DC Ondansetron HCl (Zofran) 4 mg PRN Q8HRS PRN IV NAUSEA/VOMITING; Start 10/14/19 at 13:00; Stop 10/15/19 at 12:59; Status DC Pantoprazole Sodium (PROTONIX VIAL for IV PUSH) 40 mg DAILYAC IVP Last administered on 10/18/19at 07:38; Start 10/14/19 at 16:30 Ceftriaxone Sodium (Rocephin) 1 gm Q24H IVP Last administered on 10/18/19at 11:58; Start 10/15/19 at 12:00 Sodium Chloride 1,000 ml @ 500 mls/hr 1X ONCE IV Last administered on 10/14/19at 19:25; Start 10/14/19 at 18:45; Stop 10/14/19 at 20:44; Status DC Sodium Chloride 500 ml @ 500 mls/hr 1X ONCE IV Last administered on 10/14/19at 19:45; Start 10/14/19 at 19:45; Stop 10/14/19 at 20:44; Status DC Albumin Human 100 ml @ 100 mls/hr BID IV Last administered on 10/18/19at 09:46; Start 10/14/19 at 21:00 Norepinephrine Bitartrate 8 mg/ Dextrose 258 ml @ 28.27 mls/ hr CONT PRN IV PER PROTOCOL Last administered on 10/18/19at 07:19; Start 10/14/19 at 21:45 Nystatin (Nystop) 1 jony BID TP Last administered on 10/18/19at 09:47; Start 10/15/19 at 09:00 Sodium Chloride 1,000 ml @ 75 mls/hr [id number] IV Last administered on 10/18/19at 09:47; Start 10/15/19 at 01:00 Lidocaine HCl (Buffered Lidocaine 1%) 6 ml 1X ONCE INJ Last administered on at 15:07; Start 10/15/19 at 14:45; Stop 10/15/19 at 14:58; Status DC Sodium Chloride 1,000 ml @ 1,000 mls/hr Q1H PRN IV hypotension; Start 10/15/19 at 16:06; Stop 10/15/19 at 22:05; Status DC Albumin Human 200 ml @ 200 mls/hr 1X PRN PRN IV Hypotension; Start 10/15/19 at 16:15; Stop 10/15/19 at 22:14; Status DC Diphenhydramine HCl (Benadryl) 25 mg 1X PRN PRN IV ITCHING; Start 10/15/19 at 16:15; Stop 10/16/19 at 16:14; Status DC Diphenhydramine HCl (Benadryl) 25 mg 1X PRN PRN IV ITCHING; Start 10/15/19 at 16:15; Stop 10/16/19 at 16:14; Status DC Sodium Chloride (Normal Saline Flush) 10 ml 1X PRN PRN IV AP catheter pack; Start 10/15/19 at 16:15; Stop 10/16/19 at 16:14; Status DC Sodium Chloride (Normal Saline Flush) 10 ml 1X PRN PRN IV BUCKLE STRINGER catheter pack; Start 10/15/19 at 16:15; Stop 10/16/19 at 16:14; Status DC Sodium Chloride 1,000 ml @ 400 mls/hr Q2H30M PRN IV PATENCY; Start 10/15/19 at 16:06; Stop 10/16/19 at 04:05; Status DC Info (PHARMACY MONITORING -- do not chart) 1 each PRN DAILY PRN MC SEE COMMENTS; Start 10/15/19 at 16:15; Status UNV Info (PHARMACY MONITORING -- do not chart) 1 each PRN DAILY PRN MC SEE COMMENTS; Start 10/15/19 at 16:15 Sodium Chloride 1,000 ml @ 1,000 mls/hr Q1H PRN IV hypotension; Start 10/16/19 at 14:00; Stop 10/16/19 at 19:00; Status DC Sodium Chloride 1,000 ml @ 400 mls/hr Q2H30M PRN IV PATENCY; Start 10/16/19 at 14:00; Stop 10/16/19 at 19:00; Status DC Info (PHARMACY MONITORING -- do not chart) 1 each PRN DAILY PRN MC SEE COMMENTS; Start 10/16/19 at 14:00; Status UNV Sodium Chloride 1,000 ml @ 1,000 mls/hr Q1H PRN IV hypotension; Start 10/18/19 at 11:31; Stop 10/18/19 at 17:30 Albumin Human 200 ml @ 200 mls/hr 1X PRN PRN IV Hypotension; Start 10/18/19 at 11:45; Stop 10/18/19 at 17:44 Sodium Chloride 1,000 ml @ 400 mls/hr Q2H30M PRN IV PATENCY; Start 10/18/19 at 11:31; Stop 10/18/19 at 23:30 Info (PHARMACY MONITORING -- do not chart) 1 each PRN DAILY PRN MC SEE COMMENTS; Start 10/18/19 at 11:45; Status UNV Info (PHARMACY MONITORING -- do not chart) 1 each PRN DAILY PRN MC SEE COMMENTS; Start 10/18/19 at 11:45 Active Scripts Active Levothyroxine Sodium 100 Mcg Tablet 100 Mcg PO DAILY06 90 Days Trazodone Hcl 50 Mg Tablet 50 Mg PO QHS [Folic Acid] 1 MG Tablet 1 Mg PO DAILY Nystop (Nystatin) 60 Gm Powder 1 Jony TP BID 7 Days Reported Voltaren (Diclofenac Sodium) 100 Gm Gel..gram. 2 Gm TP BID 30 Days apply to affected area(s) Tylenol (Acetaminophen) 325 Mg Tablet 1 Tab PO PRN DAILY PRN Protonix (Pantoprazole Sodium) 40 Mg Tablet.dr 40 Mg PO DAILYAC [vitamin b1 tablet] 1 Tab PO DAILY Simvastatin 20 Mg Tablet 1 Tab PO QHS Albuterol Sulfate Neb Soln (Albuterol Sulfate) 2.5 Mg/3 Ml Vial.neb 1 Vial NEB PRN Q6HRS PRN Furosemide 20 Mg Tablet 1 Tab PO DAILY Carvedilol (Carvedilol) 3.125 Mg Tablet 3.125 Mg PO BIDWMEALS Aldactone (Spironolactone) 50 Mg Tablet 1 Tab PO DAILY Lactulose 20 Gm/30 Ml Solution 20 Gm PO TID Xifaxan (Rifaximin) 550 Mg Tablet 1 Tab PO BID 10 Days [Vitamin B12 Injectio] 1,000 Mcg IM QTU 21 Days Citalopram Hbr (Citalopram Hydrobromide) 40 Mg Tablet 10 Mg PO DAILY Vitals/I & O Vital Sign - Last 24 Hours 10/17/19 10/17/19 10/17/19 10/17/19 14:07 15:00 16:00 16:00 Temp 97.4 97.4 Pulse 75 73 69 Resp 18 28 26 B/P (MAP) 104/51 (68) 133/50 (77) 109/56 (73) Pulse Ox 96 97 97 O2 Delivery Nasal Cannula Nasal Cannula Room Air Nasal Cannula O2 Flow Rate 2.0 2.0 2.0 10/17/19 10/17/19 10/17/19 10/17/19 17:00 18:00 19:00 20:00 Temp 97.4 97.4 Pulse 73 73 72 72 Resp 26 20 21 19 B/P (MAP) 127/54 (78) 127/58 (81) 121/52 (75) 155/79 (104) Pulse Ox 98 97 97 98 O2 Delivery Nasal Cannula Nasal Cannula Nasal Cannula Nasal Cannula O2 Flow Rate 2.0 2.0 2.0 2.0 10/17/19 10/17/19 10/17/19 10/17/19 20:00 21:00 22:00 23:00 Pulse 70 70 64 Resp 25 19 11 B/P (MAP) 141/72 (95) 148/63 (91) 152/71 (98) Pulse Ox 98 98 97 O2 Delivery Room Air Nasal Cannula Nasal Cannula Nasal Cannula O2 Flow Rate 2.0 2.0 2.0 2.0 10/17/19 10/18/19 10/18/19 10/18/19 23:59 00:00 01:00 01:00 Temp 97.3 97.3 Pulse 74 76 Resp 18 19 B/P (MAP) 114/75 (88) 142/67 (92) 140/68 (92) Pulse Ox 97 98 O2 Delivery Nasal Cannula Nasal Cannula Nasal Cannula O2 Flow Rate 2.0 2.0 2.0 10/18/19 10/18/19 10/18/19 10/18/19 02:00 03:00 04:00 04:00 Temp 97.4 97.4 Pulse 74 74 72 Resp 19 17 12 B/P (MAP) 153/71 (98) 133/71 (91) 152/58 (89) Pulse Ox 98 97 O2 Delivery Nasal Cannula Nasal Cannula Nasal Cannula O2 Flow Rate 2.0 2.0 2.0 10/18/19 10/18/19 10/18/19 10/18/19 05:00 06:00 07:00 08:00 Temp 97.2 97.2 Pulse 72 72 74 72 Resp 18 19 B/P (MAP) 133/73 (93) 141/57 (85) 142/62 (88) 131/54 (79) Pulse Ox 96 96 96 95 O2 Delivery Nasal Cannula Nasal Cannula Nasal Cannula Nasal Cannula O2 Flow Rate 2.0 2.0 2.0 2.0 10/18/19 10/18/19 10/18/19 10/18/19 08:00 09:00 10:00 11:00 Pulse 76 77 76 Resp 21 17 31 B/P (MAP) 108/50 (69) 119/78 (92) 121/62 (81) Pulse Ox 96 96 96 O2 Delivery Nasal Cannula Nasal Cannula Nasal Cannula Nasal Cannula O2 Flow Rate 2.0 2.0 2.0 2.0 10/18/19 10/18/19 12:00 12:00 Temp 97.0 97.0 Pulse 77 Resp 20 B/P (MAP) 129/62 (84) Pulse Ox 94 O2 Delivery Nasal Cannula Nasal Cannula O2 Flow Rate 2.0 2.0 Intake and Output 10/17/19 10/17/19 10/18/19 15:00 23:00 07:00 Intake Total 900 ml 1178.26 ml 0 ml Output Total 0 ml 0 ml 50 ml Balance 900 ml 1178.26 ml -50 ml Justicifation of Admission Dx: Justifications for Admission: Justification of Admission Dx: Yes Altered Mental Status: Altered Mental Status HEIDI ARIZMENDI MD Oct 18, 2019 13:16
[2019-10-19] VITALS (14 sets, daily range): BP systolic 81–130; BP diastolic 41–60
[2019-10-19] MEDS: NYSTATIN TOPICAL POWDER 15GM BOTTLE. TP SCH (08:33)
[2019-10-19] MEDS: ALBUMIN HUMAN 25% 100 ML IV SCH (08:33)
--- NOTE | 2019-10-19 10:11 | NUR ---
Dr. Romo met with family, including Lori ([facility]), Margarito and Lori's . Decision was made to place patient on Hospice. Orders received to discontinue all medications, all interventions and place patient on Hospice. Medication discontinued at this time and family has requested a Transitional Care Liaison to administer Last Rites. Nursing Pediatric Np called and we are working toward that goal.
--- NOTE | 2019-10-19 10:14 | PDOC ---
PROGRESS NOTES Chief Complaint Chief Complaint A/P Acute Encephalopathy secondary to UTI/elevated ammonia. Hypotension likely due to volume depletion lactate level which is normal. 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 transfuse blood today. given 1 units on admission. coagulapathy with elevated INR secondary to etoh abuse Elevated Ammonia. family does not want G tube for lactulose Alcoholic liver disease - EGD 09/2019 @ [facility] w/ portal hypertension, past imaging w/ fatty liver/?cirrhosis. check abdominal US Acute on Chronic Renal Failure secondary to vasomotor nephropapthy seen by Nephro last admission, admission creatine 4.8, baseline 2.5-3. creatine worse. received HD while inpatient H/o DU requiring IR embolization (2017) - Debility, weakness EtOH abuse disorder, very morbid obesity, BMI 55 Severe protein calorie malnutrition Hx of CHF but preserved Ef last echo 08/07/19 dvt ppx: defered given low plt and elevated INR DNR and DNI History of Present Illness History of Present Illness goals of care discussion with sister, today. all questions answered. family wishes to pursue comfort measures and no further HD. will plan to stop all nonessential meds. prn IV morphine and IV ativan. transfer to medical floor when bed available. CM consult and hospice referral. Vitals Vitals Vital Signs Date Time Temp Pulse Resp B/P (MAP) Pulse Ox O2 Delivery O2 Flow Rate FiO2 10/19/19 09:00 72 40 102/47 (65) 100 Nasal Cannula 2.0 10/19/19 08:00 97.6 97.6 Physical Exam General: Other (SOMNULENT) Heart: Other (ANASARCA) Lungs: Clear Abdomen: Other (DISTENDED) Extremities: No clubbing Assessment and Plan Assessmemt and Plan Problems Medical Problems: (1) AMS (altered mental status) Status: Acute (2) Anemia Status: Acute (3) Hypothermia Status: Acute (4) Liver failure Status: Acute (5) Pulmonary edema Status: Acute (6) UTI (urinary tract infection) Status: Acute Comment Review of Relevant I have reviewed the following items catarina (where applicable) has been applied. Labs Laboratory Tests Test 10/18/19 04:50 White Blood Count 5.0 x10^3/uL (4.0-11.0) Red Blood Count 2.08 x10^6/uL (3.50-5.40) Hemoglobin 7.1 g/dL (12.0-15.5) Hematocrit 21.1 % (36.0-47.0) Mean Corpuscular Volume 101 fL (79-100) Mean Corpuscular Hemoglobin 34 pg (25-35) Mean Corpuscular Hemoglobin Concent 34 g/dL (31-37) Red Cell Distribution Width 21.0 % (11.5-14.5) Platelet Count 19 x10^3/uL (140-400) Neutrophils (%) (Auto) 64 % (31-73) Lymphocytes (%) (Auto) 27 % (24-48) Monocytes (%) (Auto) 6 % (0-9) Eosinophils (%) (Auto) 2 % (0-3) Basophils (%) (Auto) 1 % (0-3) Neutrophils # (Auto) 3.2 x10^3/uL (1.8-7.7) Lymphocytes # (Auto) 1.3 x10^3/uL (1.0-4.8) Monocytes # (Auto) 0.3 x10^3/uL (0.0-1.1) Eosinophils # (Auto) 0.1 x10^3/uL (0.0-0.7) Basophils # (Auto) 0.0 x10^3/uL (0.0-0.2) Sodium Level 138 mmol/L (136-145) Potassium Level 4.2 mmol/L (3.5-5.1) Chloride Level 103 mmol/L (98-107) Carbon Dioxide Level 29 mmol/L (21-32) Anion Gap 6 (6-14) Blood Urea Nitrogen 41 mg/dL (7-20) Creatinine 4.3 mg/dL (0.6-1.0) Estimated GFR (Cockcroft-Gault) 10.3 Glucose Level 94 mg/dL (70-99) Calcium Level 8.5 mg/dL (8.5-10.1) Microbiology 10/14/19 Blood Culture - Final, Complete 10/14/19 Urine Culture - Final, Complete Medications Current Medications Ceftriaxone Sodium (Rocephin) 1 gm 1X ONCE IVP Last administered on 10/14/19at 12:07; Start 10/14/19 at 11:45; Stop 10/14/19 at 11:46; Status DC Ondansetron HCl (Zofran) 4 mg PRN Q8HRS PRN IV NAUSEA/VOMITING; Start 10/14/19 at 13:00; Stop 10/15/19 at 12:59; Status DC Pantoprazole Sodium (PROTONIX VIAL for IV PUSH) 40 mg DAILYAC IVP Last administered on 10/18/19at 20:50; Start 10/14/19 at 16:30 Ceftriaxone Sodium (Rocephin) 1 gm Q24H IVP Last administered on 10/18/19at 11:58; Start 10/15/19 at 12:00 Sodium Chloride 1,000 ml @ 500 mls/hr 1X ONCE IV Last administered on 0at 19:25; Start 10/14/19 at 18:45; Stop 10/14/19 at 20:44; Status DC Sodium Chloride 500 ml @ 500 mls/hr 1X ONCE IV Last administered on 10/14/19at 19:45; Start 10/14/19 at 19:45; Stop 10/14/19 at 20:44; Status DC Albumin Human 100 ml @ 100 mls/hr BID IV Last administered on 10/19/19at 08:33; Start 10/14/19 at 21:00 Norepinephrine Bitartrate 8 mg/ Dextrose 258 ml @ 28.27 mls/ hr CONT PRN IV PER PROTOCOL Last administered on 10/18/19at 07:19; Start 10/14/19 at 21:45 Nystatin (Nystop) 1 jony BID TP Last administered on 10/19/19at 08:33; Start 10/15/19 at 09:00 Sodium Chloride 1,000 ml @ 75 mls/hr [id number] IV Last administered on 10/18/19at 23:18; Start 10/15/19 at 01:00 Lidocaine HCl (Buffered Lidocaine 1%) 6 ml 1X ONCE INJ Last administered on 10/15/19at 15:07; Start 10/15/19 at 14:45; Stop 10/15/19 at 14:58; Status DC Sodium Chloride 1,000 ml @ 1,000 mls/hr Q1H PRN IV hypotension; Start 10/15/19 at 16:06; Stop 10/15/19 at 22:05; Status DC Albumin Human 200 ml @ 200 mls/hr 1X PRN PRN IV Hypotension; Start 10/15/19 at 16:15; Stop 10/15/19 at 22:14; Status DC Diphenhydramine HCl (Benadryl) 25 mg 1X PRN PRN IV ITCHING; Start 10/15/19 at 16:15; Stop 10/16/19 at 16:14; Status DC Diphenhydramine HCl (Benadryl) 25 mg 1X PRN PRN IV ITCHING; Start 10/15/19 at 16:15; Stop 10/16/19 at 16:14; Status DC Sodium Chloride (Normal Saline Flush) 10 ml 1X PRN PRN IV AP catheter pack; St art 10/15/19 at 16:15; Stop 10/16/19 at 16:14; Status DC Sodium Chloride (Normal Saline Flush) 10 ml 1X PRN PRN IV DENTAL COORDINATOR catheter pack; Start 10/15/19 at 16:15; Stop 10/16/19 at 16:14; Status DC Sodium Chloride 1,000 ml @ 400 mls/hr Q2H30M PRN IV PATENCY; Start 10/15/19 at 16:06; Stop 10/16/19 at 04:05; Status DC Info (PHARMACY MONITORING -- do not chart) 1 each PRN DAILY PRN MC SEE COMMENTS; Start 10/15/19 at 16:15; Status UNV Info (PHARMACY MONITORING -- do not chart) 1 each PRN DAILY PRN MC SEE COMME NTS; Start 10/15/19 at 16:15; Stop 10/19/19 at 08:01; Status DC Sodium Chloride 1,000 ml @ 1,000 mls/hr Q1H PRN IV hypotension; Start 10/16/19 at 14:00; Stop 10/16/19 at 19:00; Status DC Sodium Chloride 1,000 ml @ 400 mls/hr Q2H30M PRN IV PATENCY; Start 10/16/19 at 14:00; Stop 10/16/19 at 19:00; Status DC Info (PHARMACY MONITORING -- do not chart) 1 each PRN DAILY PRN MC SEE COMMENTS; Start 10/16/19 at 14:00; Status UNV Sodium Chloride 1,000 ml @ 1,000 mls/hr Q1H PRN IV hypotension; Start 7/18/20 at 11:31; Stop 10/18/19 at 17:30; Status DC Albumin Human 200 ml @ 200 mls/hr 1X PRN PRN IV Hypotension; Start 10/18/19 at 11:45; Stop 10/18/19 at 17:44; Status DC Sodium Chloride 1,000 ml @ 400 mls/hr Q2H30M PRN IV PATENCY; Start 10/18/19 at 11:31; Stop 10/18/19 at 23:30; Status DC Info (PHARMACY MONITORING -- do not chart) 1 each PRN DAILY PRN MC SEE COMMENTS; Start 10/18/19 at 11:45; Status UNV Info (PHARMACY MONITORING -- do not chart) 1 each PRN DAILY PRN MC SEE COMMENTS; Start 10/18/19 at 11:45 Active Scripts Active Levothyroxine Sodium 100 Mcg Tablet 100 Mcg PO DAILY06 90 Days Trazodone Hcl 50 Mg Tablet 50 Mg PO QHS [Folic Acid] 1 MG Tablet 1 Mg PO DAILY Nystop (Nystatin) 60 Gm Powder 1 Jony TP BID 7 Days Reported Voltaren (Diclofenac Sodium) 100 Gm Gel..gram. 2 Gm TP BID 30 Days apply to affected area(s) Tylenol (Acetaminophen) 325 Mg Tablet 1 Tab PO PRN DAILY PRN Protonix (Pantoprazole Sodium) 40 Mg Tablet.dr 40 Mg PO DAILYAC [vitamin b1 tablet] 1 Tab PO DAILY Simvastatin 20 Mg Tablet 1 Tab PO QHS Albuterol Sulfate Neb Soln (Albuterol Sulfate) 2.5 Mg/3 Ml Vial.neb 1 Vial NEB PRN Q6HRS PRN Furosemide 20 Mg Tablet 1 Tab PO DAILY Carvedilol (Carvedilol) 3.125 Mg Tablet 3.125 Mg PO BIDWMEALS Aldactone (Spironolactone) 50 Mg Tablet 1 Tab PO DAILY Lactulose 20 Gm/30 Ml Solution 20 Gm PO TID Xifaxan (Rifaximin) 550 Mg Tablet 1 Tab PO BID 10 Days [Vitamin B12 Injectio] 1,000 Mcg IM QTU 21 Days Citalopram Hbr (Citalopram Hydrobromide) 40 Mg Tablet 10 Mg PO DAILY Vitals/I & O Vital Sign - Last 24 Hours 10/18/19 10/18/19 10/18/19 10/18/19 11:00 12:00 12:00 13:00 Temp 97.0 97.0 Pulse 76 77 85 Resp 31 20 30 B/P (MAP) 121/62 (81) 129/62 (84) 130/64 (86) Pulse Ox 96 94 93 O2 Delivery Nasal Cannula Nasal Cannula Nasal Cannula Nasal Cannula O2 Flow Rate 2.0 2.0 2.0 2.0 10/18/1918/ 718/ 720 14:00 15:00 16:00 16:00 Temp 98.0 98.0 Pulse 88 94 98 Resp 36 14 16 B/P (MAP) 140/63 (88) 144/56 (85) 170/52 (91) Pulse Ox 88 93 93 O2 Delivery Simple Mask Simple Mask Mask Simple Mask O2 Flow Rate 2.0 2.0 2.0 2.0 10/18/19 10/18/19 10/18/19 10/18/19 17:00 18:00 19:00 20:00 Pulse 97 95 94 Resp 21 21 21 B/P (MAP) 133/51 (78) 143/44 (77) 116/49 (71) Pulse Ox 92 92 97 O2 Delivery Simple Mask Simple Mask Simple Mask Mask O2 Flow Rate 2.0 2.0 2.0 2.0 10/18/19 10/18/1910/17/10/18/19 20:00 21:00 22:00 23:00 Temp 97.8 97.8 Pulse 93 90 88 86 Resp 20 20 20 20 B/P (MAP) 100/38 (58) 90/41 (57) 99/42 (61) 99/44 (62) Pulse Ox 92 94 95 95 O2 Delivery Simple Mask Nasal Cannula Nasal Cannula Nasal Cannula O2 Flow Rate 2.0 2.0 2.0 2.0 10/19/19 10/19/19 10/19/19 10/19/19 00:00 00:00 01:00 02:00 Pulse 88 85 84 Resp 20 28 35 B/P (MAP) 96/46 (63) 93/44 (60) 93/44 (60) Pulse Ox 95 95 93 O2 Delivery Nasal Cannula Mask Nasal Cannula Nasal Cannula O2 Flow Rate 2.0 2.0 2.0 2.0 10/19/19 10/19/19 10/19/19 10/19/19 03:00 04:00 04:00 05:00 Temp 98.2 98.2 Pulse 84 82 72 Resp 35 38 30 B/P (MAP) 95/48 (64) 105/60 (75) 81/41 (54) Pulse Ox 97 91 100 O2 Delivery Nasal Cannula Nasal Cannula Nasal Cannula Nasal Cannula O2 Flow Rate 2.0 2.0 2.0 2.0 10/19/19 10/19/19 10/19/19 10/19/19 06:00 07:00 08:00 08:00 Temp 97.6 97.6 Pulse 75 75 73 Resp 30 28 37 B/P (MAP) 82/45 (57) 99/48 (65) 93/51 (65) Pulse Ox 100 99 99 O2 Delivery Nasal Cannula Nasal Cannula Nasal Cannula Nasal Cannula O2 Flow Rate 2.0 2.0 2.0 2.0 10/19/19 09:00 Pulse 72 Resp 40 B/P (MAP) 102/47 (65) Pulse Ox 100 O2 Delivery Nasal Cannula O2 Flow Rate 2.0 Intake and Output 10/18/19 10/18/19 10/19/19 15:00 23:00 07:00 Intake Total 1100 ml 0 ml Output Total 25 ml 15 ml 20 ml Balance 1075 ml -15 ml -20 ml Justicifation of Admission Dx: Justifications for Admission: Justification of Admission Dx: Yes Altered Mental Status: Altered Mental Status JT JAIMES MD Oct 19, 2019 10:14
[2019-10-19] MEDS ORDERED: MORPHINE SULFATE 2 MG/ML VIAL. IV PRN (10:45)
--- NOTE | 2019-10-19 14:22 | NUR ---
Fr. Bah at bedside to deliver last rites at this time.
[2019-10-20 04:00] VITALS: BP 102/69
[2019-10-20 08:00] VITALS: BP 101/43
--- NOTE | 2019-10-20 08:22 | NUR ---
SS following up with discharge planning. SS reviewed pt chart and discussed with pt RN. Pt's family wanting hospice and comfort measures. SS spoke with pt's spouse, Margarito, , and discussed hospice services. Pt's spouse requesting inpatient hospice. SS notified pt's spouse that pt would need to be evaluated for inpatient hospice and if pt does not qualify or is on inpatient hospice for seven days or longer the family needs to have other options planned such as hospice at home or facility with hospice. Pt's spouse reported understanding. SS phoned and faxed referral to [facility] hospice, ; fax [phone]. SS currently awaiting further communication from [facility] and will proceed accordingly.
--- NOTE | 2019-10-20 11:57 | NUR ---
Patient discharged to inpatient hospice.
--- NOTE | 2019-10-20 15:12 | DS ---
DATE OF DISCHARGE: 10/20/2019 ADMISSION DIAGNOSES: Sepsis, metabolic encephalopathy, UTI, alcoholic liver disease, hypotension, hypothermia, coagulopathy, elevated ammonia, cirrhosis, chronic renal failure. DISCHARGE DIAGNOSIS: Progression of severe end-stage alcoholic liver disease with failure to thrive (she is being discharged and admitted to inpatient hospice. HOSPITAL COURSE: The patient is a pleasant elderly female who presented with severe sepsis and encephalopathy. She has end-stage liver disease from alcohol abuse. She was admitted. We gave her IV antibiotics. She was followed in the ICU. We consulted Nephrology and GI. Over the past several days, she just simply has not gotten better. Today I discussed the case with case management team. The plan is to get her discharged and readmitted to inpatient hospice. DISPOSITION: Inpatient hospice. ACTIVITY: As tolerated. DIET: N.p.o. MEDICATIONS: Please see the MRAD. TOTAL TIME: 32 minutes. PATRICIA MELO DO DR: CLAUDIO/alexi JOB#: [id number] / [id number]
--- NOTE | 2019-10-28 11:29 | DS ---
DATE OF DISCHARGE: 10/20/2019 SUMMARY ADMISSION DIAGNOSES: Severe sepsis, encephalopathy, history of alcohol issues, history of cirrhosis, coagulopathy, elevated ammonia level, alcoholic liver disease, chronic renal failure, debility, obesity, malnutrition, history of congestive heart failure. 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 CONSULTS: Nephrology and GI. PROCEDURES: None. HOSPITAL COURSE: The patient is a pleasant elderly female who presented with severe sepsis and severe confusion, was noted to have severe metabolic encephalopathy. She was admitted to the ICU. We gave her IV antibiotics and the above consults were obtained. Unfortunately, her disease continued to progress. We called fatherOlvin to deliver her last rites and she comfortably. PATRICIA MELO DO DR: CLAUDIO/alexi JOB#: [id number] / [id number]
== END 2019-10-20 11:58 | disposition hospice, inpatient (51) | DRG 871 ==
LOC: ER 10:22 → 1 WEST ICU 12:45
PROVIDERS: ADMIT Internal Medicine; ATTEND Internal Medicine
PROC: 30233N1 Transfusion of Nonautologous Red Blood Cells into Peripheral Vein, Percutaneous Approach (ICD-10-PCS; 2019-10-14)
PROC: 02H633Z Insertion of Infusion Device into Right Atrium, Percutaneous Approach (ICD-10-PCS; 2019-10-15)
PROC: 5A1D70Z Performance of Urinary Filtration, Intermittent, Less than 6 Hours Per Day (ICD-10-PCS; 2019-10-15)
PROC: 02HV33Z Insertion of Infusion Device into Superior Vena Cava, Percutaneous Approach (ICD-10-PCS; principal; 2019-10-16)
PROC: B548ZZA Ultrasonography of Superior Vena Cava, Guidance (ICD-10-PCS; 2019-10-16)
PROC: 5A1D70Z Performance of Urinary Filtration, Intermittent, Less than 6 Hours Per Day (ICD-10-PCS; 2019-10-16)
PROC: 5A1D70Z Performance of Urinary Filtration, Intermittent, Less than 6 Hours Per Day (ICD-10-PCS; 2019-10-18)
DX: A41.9 Sepsis, unspecified organism (principal); G93.41 Metabolic encephalopathy; N17.0 Acute kidney failure with tubular necrosis; E43 Unspecified severe protein-calorie malnutrition; N39.0 Urinary tract infection, site not specified; K76.6 Portal hypertension; Z68.43 Body mass index [BMI] 50.0-59.9, adult; D68.9 Coagulation defect, unspecified; I13.2 Hypertensive heart and chronic kidney disease with heart failure and with stage 5 chronic kidney disease, or end stage renal disease; R65.20 Severe sepsis without septic shock; F32.9 Major depressive disorder, single episode, unspecified; K21.9 Gastro-esophageal reflux disease without esophagitis; M19.90 Unspecified osteoarthritis, unspecified site; I50.9 Heart failure, unspecified; E78.00 Pure hypercholesterolemia, unspecified; E03.9 Hypothyroidism, unspecified; F41.9 Anxiety disorder, unspecified; E78.5 Hyperlipidemia, unspecified; Z66 Do not resuscitate; D69.6 Thrombocytopenia, unspecified; F10.10 Alcohol abuse, uncomplicated; K70.40 Alcoholic hepatic failure without coma; E66.01 Morbid (severe) obesity due to excess calories; K76.0 Fatty (change of) liver, not elsewhere classified; K29.70 Gastritis, unspecified, without bleeding; Z20.828 Contact with and (suspected) exposure to other viral communicable diseases; Z51.5 Encounter for palliative care; K70.30 Alcoholic cirrhosis of liver without ascites; E87.5 Hyperkalemia; D53.9 Nutritional anemia, unspecified; E86.9 Volume depletion, unspecified; I48.91 Unspecified atrial fibrillation; N18.9 Chronic kidney disease, unspecified; T68.XXXA Hypothermia, initial encounter; Y92.89 Other specified places as the place of occurrence of the external cause; Z87.891 Personal history of nicotine dependence; Z87.11 Personal history of peptic ulcer disease; Z90.49 Acquired absence of other specified parts of digestive tract; Z90.710 Acquired absence of both cervix and uterus; Z88.8 Allergy status to other drugs, medicaments and biological substances; Z82.49 Family history of ischemic heart disease and other diseases of the circulatory system
CPT/HCPCS: 36415; 36556; 51702; 71045; 76705; 76937; 80048; 80053; 80069; 82140; 83605; 83690; 84100; 84484; 85025; 85027; 85379; 85384; 85610; 85730; 86704; 86706; 86850; 86900; 86901; 86920; 87040; 87086; 87205; 87340; 93005; 96374; C1892; C9113; J0696; J2060; J2270; J3490; J7030; J7040; J7060; P9016; P9046; 99285-25; G0378; U0003-CS

== ENCOUNTER 2019-10-20 12:34 | Inpatient (IN) | payer OTHER ==
[~2019-10-20] VITALS: Ht 198.1 cm; Wt 148.0 kg
[~2019-10-20 12:34] MED LIST changes: +ACET325T9 PO; +ALBU2.5V5 NEB; +CARV3.1210 PO; +DICL100G54 TP; +FURO20TA3 PO; +LACT20SO PO; +RIFA550T4 PO; +SIMV20TA18 PO; +SPIR50TA PO; +VITAMIN B IM; +VITAMIN B PO
[2019-10-20] MEDS ORDERED: ONDANSETRON PF 4 MG/2 ML VIAL. IVP PRN (12:45)
[2019-10-20] MEDS ORDERED: 0.9 % SODIUM CHLORIDE 10 ML DISP.SYRIN. IV PRN (12:45)
[2019-10-20] MEDS ORDERED: ACETAMINOPHEN 325 MG TABLET. PO PRN (12:45)
[2019-10-20] MEDS ORDERED: SODIUM PHOSPHATES 19/7GM 133 ML ENEMA. PR PRN (12:45)
[2019-10-20] MEDS ORDERED: BISACODYL 10 MG SUPP.RECT. PR PRN (12:45)
[2019-10-20] MEDS ORDERED: MORPHINE SULFATE 4 MG/ML VIAL. IVP PRN (12:45)
[2019-10-20] MEDS ORDERED: ACETAMINOPHEN 650 MG/20.3 ML SOLUTION. PEG PRN (12:45)
[2019-10-20] MEDS ORDERED: fentaNYL PF VIAL 100 MCG/2 ML VIAL IVP PRN ×3 (12:45)
[2019-10-20] MEDS ORDERED: HALOPERIDOL LACTATE 5 MG/ML VIAL. IVP PRN ×3 (12:45)
[2019-10-20] MEDS ORDERED: MORPHINE SULFATE 2 MG/ML VIAL. IVP PRN (12:45)
[2019-10-20] MEDS ORDERED: ACETAMINOPHEN 650 MG SUPP.RECT. PR PRN (12:45)
[2019-10-20] MEDS ORDERED: SCOPOLAMINE 1.5MG PATCH. TD PRN (12:45)
[2019-10-20] MEDS ORDERED: MORPHINE SULFATE 20 MG/ML CONC SOLUTION. PO/SL PRN ×2 (12:45)
[2019-10-20] MEDS ORDERED: PROCHLORPERAZINE 10 MG/2 ML VIAL. IVP PRN (12:45)
[2019-10-20] MEDS ORDERED: ATROPINE 1% OPHTH SOLUTION 5ML BOTTLE. SL PRN (12:45)
[2019-10-20] MEDS ORDERED: HYDROmorphone 2 MG/ML VIAL IVP PRN ×2 (12:45)
[2019-10-20 13:08] VITALS: BP 114/43
--- NOTE | 2019-10-20 13:36 | NUR ---
Hospice Nurse here to do initial assessment on patient. Suggests Scopolamine and atropine drops since she has excessive crackles and labored respirations.
[2019-10-20] MEDS ORDERED: MORPHINE SULFATE 30 ML IV PRN ×2 (14:00→21:30)
[2019-10-20 15:22] VITALS: BP 93/40
[2019-10-20 19:30] VITALS: BP 67/31
--- NOTE | 2019-10-20 22:30 | NUR ---
Patient's and sister called, updated on patient's status--HR 50's, Oxygen saturation 88-92%, and patient unresponsive. Family questioned time it would take for , explained it was difficult to say. Discussed when to call family in, decision was made to call when patient's heart rate consistently in the 40's. Reinforced to family if they were not able to get to the hospital quickly, this RN would stay with the patient until she passed. also requested at that time he would like to talk to the patient. Family very appreciative of care.
[2019-10-20 23:24] VITALS: BP 57/29
--- NOTE | 2019-10-21 02:50 | NUR ---
Patient's time of declared at 0029 after absence of heart tones and spontaneous respirations auscultated for one full minute by this RN and verified by LESLIE Grover. Sister/DPMELLY Sandoval and brother in law at bedside at 0032 and notified of time of . Patient's , daughter and son had spoken to patient via phone prior to her passing. At 0035 patient's notified of time of , he stated he would not be coming in secondary to distance--notified that patient's sister was at bedside. Sister gave [facility] in [place], [place] as home and signed consent for release of body. [facility] notified of at 0040, Zehra care management coordinator called back at 0045 and all information was given. LESLIE Shahid here at 0120 to speak with patient's family and to assist in caring for body for transport to [facility]. After sister left, [facility] notified of --patient is possible eye and tissue donation. [place] put in patient's eyes as per [facility] request and body taken to the [facility].
--- NOTE | 2019-10-28 11:58 | DS ---
DATE OF DISCHARGE: 10/21/2019 SUMMARY ADMISSION DIAGNOSES: Severe sepsis, encephalopathy, history of alcohol issues, history of cirrhosis, coagulopathy, elevated ammonia level, alcoholic liver disease, chronic renal failure, debility, obesity, malnutrition, history of congestive heart failure. 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 CONSULTS: Nephrology and GI. PROCEDURES: None. HOSPITAL COURSE: The patient is a pleasant elderly female who presented with severe sepsis and severe confusion, was noted to have severe metabolic encephalopathy. She was admitted to the ICU. We gave her IV antibiotics and the above consults were obtained. Unfortunately, her disease continued to progress. We called fatherOlvin to deliver her last rites and she comfortably. PATRICIA MELO DO DR: CLAUDIO/alexi JOB#: [id number] / [id number]
== END 2019-10-21 00:29 | disposition expired | DRG 871 ==
LOC: 1 WEST ICU 12:34
PROVIDERS: ADMIT Internal Medicine; ATTEND Internal Medicine
DX: A41.9 Sepsis, unspecified organism (principal); G93.41 Metabolic encephalopathy; J96.90 Respiratory failure, unspecified, unspecified whether with hypoxia or hypercapnia; I13.0 Hypertensive heart and chronic kidney disease with heart failure and stage 1 through stage 4 chronic kidney disease, or unspecified chronic kidney disease; E46 Unspecified protein-calorie malnutrition; K70.9 Alcoholic liver disease, unspecified; R65.20 Severe sepsis without septic shock; F10.10 Alcohol abuse, uncomplicated; Z79.899 Other long term (current) drug therapy; N18.9 Chronic kidney disease, unspecified; I50.9 Heart failure, unspecified; Z66 Do not resuscitate; Z88.8 Allergy status to other drugs, medicaments and biological substances; Z68.37 Body mass index [BMI] 37.0-37.9, adult
CPT/HCPCS: J2270; G0378